=== PATIENT | male | born 1940 | race Caucasian/White ===

== ENCOUNTER 2020-08-31 03:01 | Emergency (ER) | payer MEDICARE, BC ==
[2020-08-31] MEDS ORDERED: Nitroglycerin 0.4 MG Tab.SL SL PRN (03:31)
[2020-08-31] MEDS ORDERED: Alum Hydroxide/Mag Hydroxide 15 ML, Lidocaine 2% 15 ML PO ONE ×2 (03:45)
[2020-08-31] MEDS ORDERED: Ondansetron 4 MG/2 ML SDV IVPUSH STA (04:23)
[2020-08-31] MEDS ORDERED: Sodium Chloride 0.9% 10 ML Syringe FLUSH PRN (04:30)
--- NOTE | 2020-08-31 04:45 | EDM.PDOC ---
ED HPI GENERAL MEDICAL PROBLEM - General Chief Complaint: Chest Pain Stated Complaint: CHEST PAIN Time Seen by Provider: 08/31/20 03:20 Source of Information: Reports: Patient, Family History Limitations: Reports: No Limitations - History of Present Illness INITIAL COMMENTS - FREE TEXT/NARRATIVE: Patient presented to the Ed with his friend because of chest pain and epigastric pain which started at 11 pm. He also c/o nausea but no vomiting. There is no fever,chills,cough/cold symptoms. mid chest/right upper chest Pain Score (Numeric/FACES): 8 - Related Data Allergies Allergy/AdvReac Type Severity Reaction Status Date / Time No Known Allergies Allergy Verified 08/31/20 03:19 Home Meds: Home Meds Carbidopa/Levodopa [Carbidopa-Levodopa 25-100] 1 tab PO TID 08/31/20 [History] Propranolol [Inderal] 20 mg PO BID 08/31/20 [History] Simvastatin 40 mg PO BEDTIME 08/31/20 [History] Past Medical History HEENT History: Reports: Impaired Vision Musculoskeletal History: Reports: Other (See Below) Other Musculoskeletal History: has parkinsons, has hand tremors. Neurological History: Reports: Parkinson's Social & Family History - Family History Family Medical History: No Pertinent Family History - Tobacco Use Tobacco Use Status *Q: Never Tobacco User Second Hand Smoke Exposure: No - Caffeine Use Caffeine Use: Reports: Coffee, Soda Other Caffeine Use: drinks soda and tea-seldom - Recreational Drug Use Recreational Drug Use: No ED ROS GENERAL - Review of Systems Review Of Systems: See Below Constitutional: Reports: No Symptoms HEENT: Reports: No Symptoms Respiratory: Reports: No Symptoms Cardiovascular: Reports: Chest Pain Endocrine: Reports: No Symptoms GI/Abdominal: Reports: Abdominal Pain, Nausea : Reports: No Symptoms Musculoskeletal: Reports: No Symptoms Skin: Reports: No Symptoms ED EXAM, GENERAL - Physical Exam Exam: See Below Exam Limited By: No Limitations General Appearance: Alert, No Apparent Distress Ears: Normal External Exam, Normal Canal Nose: Normal Inspection, Normal Mucosa, No Blood Throat/Mouth: Normal Inspection, Normal Lips, Normal Teeth Head: Atraumatic, Normocephalic Neck: Normal Inspection, Supple, Non-Tender, Full Range of Motion Respiratory/Chest: No Respiratory Distress, Lungs Clear, Normal Breath Sounds Cardiovascular: Normal Peripheral Pulses, Regular Rate, Rhythm, No Edema, No Gallop, No JVD, No Murmur, No Rub GI/Abdominal: Normal Bowel Sounds, Soft, Non-Tender, No Organomegaly Back Exam: Normal Inspection, Full Range of Motion Extremities: Normal Inspection, Normal Range of Motion, Non-Tender Neurological: Alert, Oriented, CN II-XII Intact Psychiatric: Normal Affect Course - Vital Signs Text/Narrative:: Labs/EKG/CXR was discussed with patient He took ASA 324 mg po x1 before the ED visit GI cocktail PO x1 NTG SL x1 Vistaril 25 mg IM x1 Last Recorded V/S: Last Vital Signs Temp 36.5 C 08/31/20 03:15 Pulse 51 L 08/31/20 03:15 Resp 21 H 08/31/20 03:15 BP 172/88 H 08/31/20 03:33 Pulse Ox 100 08/31/20 03:15 - Orders/Labs/Meds Orders: Active Orders 24 hr Category Date Time Status EKG Documentation Completion [RC] ASDIRECTED Care 08/31/20 03:31 Active Chest 1V Frontal [CR] Stat Exams 08/31/20 03:31 Taken Nitroglycerin [Nitrostat] Med 08/31/20 03:31 Active 0.4 mg SL Q5M PRN Sodium Chloride 0.9% [Saline Flush] Med 08/31/20 04:30 Active 10 ml FLUSH ASDIRECTED PRN EKG 12 Lead [EK] Routine Ther 08/31/20 03:31 Ordered Medication Orders Nitroglycerin (Nitrostat) 0.4 mg SL Q5M PRN PRN Reason: Chest Pain Last Admin: 08/31/20 03:33 Dose: 0.4 mg Documented by: JOHNY Sodium Chloride (Saline Flush) 10 ml FLUSH ASDIRECTED PRN PRN Reason: Keep Vein Open Last Admin: 08/31/20 04:31 Dose: 10 ml Documented by: JOHNY Labs: Laboratory Tests 08/31/20 08/31/20 08/31/20 Range/Units 03:25 03:25 03:25 WBC 8.9 (3.2-10.1) x10-3/uL RBC 4.68 (3.90-5.90) x10(6)uL Hgb 14.5 (12.9-17.7) g/dL Hct 43.2 (38.3-50.1) % MCV 92.2 (80.8-98.7) fL MCH 31.0 (27.0-33.3) pg MCHC 33.6 (28.7-35.3) g/dL RDW 12.7 (12.4-15.0) % Plt Count 271 (117-477) x10(3)uL MPV 8.3 (6.7-11.0) fL Neut % (Auto) 63.9 (40.3-71.8) % Lymph % (Auto) 24.4 (15.8-45.3) % Blount % (Auto) 8.2 (5.5-15.2) % Eos % (Auto) 2.8 (0.1-6.8) % Baso % (Auto) 0.7 (0.3-3.8) % Neut # (Auto) 5.7 (1.7-6.9) x10-3/uL Lymph # (Auto) 2.2 (0.5-4.5) x10-3/uL Blount # (Auto) 0.7 (0.0-1.2) x10-3/uL Eos # (Auto) 0.2 (0.0-0.6) x10-3/uL Baso # (Auto) 0.1 (0.0-0.3) x10-3/uL PT 10.2 (9.0-11.1) sec INR 0.94 L (1.00-1.24) APTT 27.7 (24.4-33.2) SECONDS Sodium 134 L (135-145) mmol/L Potassium 4.6 (3.5-5.3) mmol/L Chloride 100 (100-110) mmol/L Carbon Dioxide 25 (21-32) mmol/L BUN 18 (7-18) mg/dL Creatinine 1.0 (0.70-1.30) mg/dL Est Cr Clr Drug Dosing 48.21 mL/min Estimated GFR (MDRD) > 60 (>60) BUN/Creatinine Ratio 18.0 (9-20) Glucose 122 H (80-116) mg/dL Calcium 9.3 (8.6-10.2) mg/dL Total Bilirubin 0.6 (0.1-1.3) mg/dL AST 22 (5-25) IU/L ALT 19 (12-36) U/L Alkaline Phosphatase 60 (56-112) IU/L Troponin I (4.0-60.3) pg/mL Total Protein 7.1 (6.0-8.0) g/dL Albumin 3.9 (3.2-4.6) g/dL Globulin 3.2 g/dL Albumin/Globulin Ratio 1.2 08/31/20 Range/Units 03:25 WBC (3.2-10.1) x10-3/uL RBC (3.90-5.90) x10(6)uL Hgb (12.9-17.7) g/dL Hct (38.3-50.1) % MCV (80.8-98.7) fL MCH (27.0-33.3) pg MCHC (28.7-35.3) g/dL RDW (12.4-15.0) % Plt Count (117-477) x10(3)uL MPV (6.7-11.0) fL Neut % (Auto) (40.3-71.8) % Lymph % (Auto) (15.8-45.3) % Blount % (Auto) (5.5-15.2) % Eos % (Auto) (0.1-6.8) % Baso % (Auto) (0.3-3.8) % Neut # (Auto) (1.7-6.9) x10-3/uL Lymph # (Auto) (0.5-4.5) x10-3/uL Blount # (Auto) (0.0-1.2) x10-3/uL Eos # (Auto) (0.0-0.6) x10-3/uL Baso # (Auto) (0.0-0.3) x10-3/uL PT (9.0-11.1) sec INR (1.00-1.24) APTT (24.4-33.2) SECONDS Sodium (135-145) mmol/L Potassium (3.5-5.3) mmol/L Chloride (100-110) mmol/L Carbon Dioxide (21-32) mmol/L BUN (7-18) mg/dL Creatinine (0.70-1.30) mg/dL Est Cr Clr Drug Dosing mL/min Estimated GFR (MDRD) (>60) BUN/Creatinine Ratio (9-20) Glucose (80-116) mg/dL Calcium (8.6-10.2) mg/dL Total Bilirubin (0.1-1.3) mg/dL AST (5-25) IU/L ALT (12-36) U/L Alkaline Phosphatase (56-112) IU/L Troponin I 22.9 (4.0-60.3) pg/mL Total Protein (6.0-8.0) g/dL Albumin (3.2-4.6) g/dL Globulin g/dL Albumin/Globulin Ratio Meds: Medications Generic Name Dose Route Start Last Admin Trade Name Freq PRN Reason Stop Dose Admin Nitroglycerin 0.4 mg 08/31/20 03:31 08/31/20 03:33 Nitrostat SL 0.4 mg Q5M PRN Administration Chest Pain Sodium Chloride 10 ml 08/31/20 04:30 08/31/20 04:31 Saline Flush FLUSH 10 ml ASDIRECTED PRN Administration Keep Vein Open Discontinued Medications Generic Name Dose Route Start Last Admin Trade Name Freq PRN Reason Stop Dose Admin Al Hydroxide/Mg Hydroxide 15 0 ml 08/31/20 03:45 08/31/20 03:50 ml/ Lidocaine HCl 15 ml PO 08/31/20 03:46 30 ml ONETIME ONE Administration Hydroxyzine HCl 25 mg 08/31/20 04:57 08/31/20 05:04 Vistaril IM 08/31/20 04:58 25 mg NOW STA Administration Ondansetron HCl 4 mg 08/31/20 04:23 08/31/20 04:30 Zofran IVPUSH 08/31/20 04:24 4 mg NOW STA Administration Departure - Departure Time of Disposition: 06:00 Disposition: Home, Self-Care 01 Condition: Good Clinical Impression: GERD (gastroesophageal reflux disease), Atypical chest pain - Discharge Information Instructions: Food Choices for Gastroesophageal Reflux Disease, Adult, Nonspecific Chest Pain, Adult, [id number] Referrals: Matteo De Los Santos MD [Primary Care Provider] - Forms: ED Department Discharge Additional Instructions: Please read discharge instructions on GERD and atypical chest pain Read food and beverages that can aggravate acid reflux/GERD If it's becoming more frequent ask your doctor for omeprazole 20 mg daily Sepsis Event Note (ED) - Evaluation Sepsis Screening Result: No Definite Risk - Focused Exam Vital Signs: Vital Signs Temp Pulse Resp BP BP Pulse Ox 08/31/20 03:33 172/88 H 08/31/20 03:15 36.5 C 51 L 21 H 148/81 H 100 - My Orders Last 24 Hours: My Active Orders 08/31/20 03:31 EKG Documentation Completion [RC] ASDIRECTED Chest 1V Frontal [CR] Stat Nitroglycerin [Nitrostat] 0.4 mg SL Q5M PRN EKG 12 Lead [EK] Routine 08/31/20 04:30 Sodium Chloride 0.9% [Saline Flush] 10 ml FLUSH ASDIRECTED PRN - Assessment/Plan Last 24 Hours: My Active Orders 08/31/20 03:31 EKG Documentation Completion [RC] ASDIRECTED Chest 1V Frontal [CR] Stat Nitroglycerin [Nitrostat] 0.4 mg SL Q5M PRN EKG 12 Lead [EK] Routine 08/31/20 04:30 Sodium Chloride 0.9% [Saline Flush] 10 ml FLUSH ASDIRECTED PRN
[2020-08-31] MEDS ORDERED: hydrOXYzine HCl 50 MG/ML SDV IM STA (04:57)
[2020-08-31] MEDS ORDERED: Simethicone 80 MG Tab.Chew PO STA (05:52)
--- NOTE | 2020-08-31 11:10 | CR ---
INDICATION: Chest pain. CHEST ONE VIEW: An AP upright view of the chest was obtained 08/31/20 - no comparisons. The heart is normal in size and shape. The aorta is tortuous with calcification in the arch and descending portion. Overlying EKG leads are noted. A definite active infiltrate or effusion was not identified, although markings at the left costophrenic angle area are somewhat indistinct and could represent a very minimal area of pneumonia or fibrosis. Colonic interposition is noted on the right. IMPRESSION: 1. No definite acute process, but minimal pneumonia at the left costophrenic angle difficult to exclude. 2. ASD aorta. MTDD
== END 2020-08-31 06:23 | disposition home or self-care (01) ==
LOC: FB.ED 03:01
DX: K21.9 Gastro-esophageal reflux disease without esophagitis (principal); G20 Parkinson's disease; Z79.899 Other long term (current) drug therapy
CPT/HCPCS: 36415; 71045; 80053; 84484; 85025; 85610; 85730; 93005; 96372; 96374; 99284; 99285-25; A9270-GY; J2405; J3410

== ENCOUNTER 2020-10-05 06:26 | Inpatient (IN) | payer MEDICARE, BC ==
[2020-10-05] MEDS: Lactated Ringers 1,000 ML IV SCH ×3 (07:15→16:30)
--- NOTE | 2020-10-05 08:20 | PCM.HPR ---
H & P Addendum review - H & P Addendum Review Date of Original H & P: 09/28/20 Date Reviewed: 10/05/20 Time Reviewed: 07:55 Patient was Examined: No Changes
[2020-10-05] MEDS ORDERED: Piperacillin/Tazobactam 3.375 GM in Sodium Chloride 0.9% 50 ML IV SCH (09:00)
[2020-10-05] MEDS ORDERED: Sodium Chloride 0.9% 250 ML IV SCH (10:00)
[2020-10-05] MEDS ORDERED: HYDROmorphone 2 MG/ML SDV IVPUSH PRN (11:22)
--- NOTE | 2020-10-05 11:22 | PCM.OPNOTE ---
- General Post-Op/Procedure Note Date of Surgery/Procedure: 10/05/20 Operative Procedure(s): Lap Nyla Findings: Acute Gangrenous Cholecystitis with Adhesions Pre Op Diagnosis: Cholecystitis Post-Op Diagnosis: Same Anesthesia Technique: General ET Tube Primary Surgeon: Kannan Sherman Anesthesia Provider: Singh Atwood Pathology: GB, culture EBL in mLs: 850 Surgical Drain/Tube Type: Jr Egan Drain Complications: None Condition: Good
[2020-10-05] MEDS ORDERED: Lactated Ringers 1,000 ML IV SCH (11:30)
[2020-10-05] MEDS: Pantoprazole 40 MG Vial IVPUSH SCH (12:27)
[2020-10-05] MEDS ORDERED: Lactated Ringers 1,000 ML IV ONE (12:49)
[2020-10-05] MEDS ORDERED: Glycopyrrolate 0.2 MG/ML 5 ML MDV IV ONE (12:49)
[2020-10-05] MEDS ORDERED: Sodium Chloride 0.9% 500 ML IV ONE (12:49)
[2020-10-05] MEDS ORDERED: Hetastarch in NS 500 ML IV ONE (12:49)
[2020-10-05] MEDS ORDERED: Ketorolac 30 MG/ML SDV IVPUSH ONE (12:49)
[2020-10-05] MEDS ORDERED: Midazolam 1 MG/ML 2 ML SDV IV ONE (12:49)
[2020-10-05] MEDS ORDERED: Sodium Chloride 0.9% 1,000 ML IV ONE (12:49)
[2020-10-05] MEDS ORDERED: Ondansetron 4 MG/2 ML SDV IVPUSH ONE (12:49)
[2020-10-05] MEDS ORDERED: Propofol 200 MG/20 ML SDV IV ONE (12:49)
[2020-10-05] MEDS ORDERED: Rocuronium 100 MG/10 ML MDV IV ONE (12:49)
[2020-10-05] MEDS ORDERED: HYDROmorphone 2 MG/ML SDV IV ONE (12:49)
[2020-10-05] MEDS ORDERED: fentaNYL 100 MCG/2 ML SDV IV ONE (12:49)
[2020-10-05] MEDS: Sodium Chloride 0.9% 10 ML Syringe FLUSH PRN ×2 (12:50→16:30)
[2020-10-05] MEDS ORDERED: HYDROmorphone 2 MG/ML SDV IVPUSH ONE (13:29)
[2020-10-05] MEDS: Piperacillin/Tazobactam 3.375 GM in Sodium Chloride 0.9% 50 ML IV SCH ×2 (16:20→20:57)
[2020-10-05] MEDS: HYDROmorphone 2 MG/ML SDV IVPUSH PRN (18:04)
[2020-10-05] MEDS: Carbidopa/Levodopa 25-100 MG Tab PO SCH (20:57)
[2020-10-06] MEDS: HYDROmorphone 2 MG/ML SDV IVPUSH PRN ×4 (00:22→21:02)
[2020-10-06] MEDS ORDERED: Lactated Ringers 1,000 ML IV SCH (02:15)
[2020-10-06] MEDS: Piperacillin/Tazobactam 3.375 GM in Sodium Chloride 0.9% 50 ML IV SCH ×4 (03:30→21:00)
[2020-10-06] MEDS: Sodium Chloride 0.9% 10 ML Syringe FLUSH PRN ×2 (04:00→04:05)
[2020-10-06] MEDS: Lactated Ringers 1,000 ML IV SCH ×2 (05:18→14:55)
--- NOTE | 2020-10-06 07:36 | PCM.SURGPN ---
- General Info Date of Service: 10/06/20 POD#: 1 Functional Status: Reports: Pain Controlled - Review of Systems General: Reports: No Symptoms Pulmonary: Reports: No Symptoms Cardiovascular: Reports: No Symptoms Gastrointestinal: Reports: No Symptoms - Patient Data Vitals - Most Recent: Last Vital Signs Temp 96.4 F L 10/05/20 18:30 Pulse 92 10/05/20 18:30 Resp 18 10/05/20 18:30 BP 136/90 10/05/20 18:30 Pulse Ox 96 10/05/20 18:30 Weight - Most Recent: 70.052 kg I&O - Last 24 Hours: Intake & Output 10/05/20 10/06/20 10/06/20 22:59 06:59 14:59 Intake Total 1100 1550 Output Total 660 380 Balance 440 1170 Lab Results Last 24 Hrs: Laboratory Results - last 24 hr 10/05/20 10/05/20 10/05/20 Range/Units 06:50 07:14 10:20 WBC (3.2-10.1) x10-3/uL RBC (3.90-5.90) x10(6)uL Hgb 10.9 L D (12.9-17.7) g/dL Hct 31.7 L D (38.3-50.1) % MCV (80.8-98.7) fL MCH (27.0-33.3) pg MCHC (28.7-35.3) g/dL RDW (12.4-15.0) % Plt Count (117-477) x10(3)uL MPV (6.7-11.0) fL Add Manual Diff Sodium (135-145) mmol/L Potassium (3.5-5.3) mmol/L Chloride (100-110) mmol/L Carbon Dioxide (21-32) mmol/L BUN (7-18) mg/dL Creatinine (0.70-1.30) mg/dL Est Cr Clr Drug Dosing mL/min Estimated GFR (MDRD) (>60) BUN/Creatinine Ratio (9-20) Glucose (80-116) mg/dL Calcium (8.6-10.2) mg/dL Total Bilirubin (0.1-1.3) mg/dL AST (5-25) IU/L ALT (12-36) U/L Alkaline Phosphatase (56-112) IU/L Total Protein (6.0-8.0) g/dL Albumin (3.2-4.6) g/dL Globulin g/dL Albumin/Globulin Ratio SARS-CoV-2 RNA (NAHOMI) Negative (NEGATIVE) Blood Type A NEGATIVE Gel Antibody Screen Negative Crossmatch See Detail 10/06/20 10/06/20 Range/Units 06:25 06:25 WBC 16.0 H (3.2-10.1) x10-3/uL RBC 4.12 (3.90-5.90) x10(6)uL Hgb 12.6 L (12.9-17.7) g/dL Hct 37.4 L (38.3-50.1) % MCV 90.7 (80.8-98.7) fL MCH 30.6 (27.0-33.3) pg MCHC 33.8 (28.7-35.3) g/dL RDW 14.3 (12.4-15.0) % Plt Count 225 (117-477) x10(3)uL MPV 7.7 (6.7-11.0) fL Add Manual Diff Yes Sodium 138 (135-145) mmol/L Potassium 3.9 (3.5-5.3) mmol/L Chloride 101 (100-110) mmol/L Carbon Dioxide 28 (21-32) mmol/L BUN 17 (7-18) mg/dL Creatinine 0.9 (0.70-1.30) mg/dL Est Cr Clr Drug Dosing 53.75 mL/min Estimated GFR (MDRD) > 60 (>60) BUN/Creatinine Ratio 18.9 (9-20) Glucose 119 H (80-116) mg/dL Calcium 7.8 L (8.6-10.2) mg/dL Total Bilirubin 1.3 (0.1-1.3) mg/dL AST 51 H D (5-25) IU/L ALT 35 D (12-36) U/L Alkaline Phosphatase 49 L (56-112) IU/L Total Protein 4.9 L (6.0-8.0) g/dL Albumin 2.2 L (3.2-4.6) g/dL Globulin 2.7 g/dL Albumin/Globulin Ratio 0.8 SARS-CoV-2 RNA (NAHOMI) (NEGATIVE) Blood Type Gel Antibody Screen Crossmatch Azael Results Last 24 Hrs: Microbiology 10/05/20 10:04 Gram Stain - Final Gallbladder Med Orders - Current: Current Medications Hydrocodone Bitart/Acetaminophen (Acetaminophen/Hydrocodone 325-5 Mg Tab) 1 tab PO Q4H PRN PRN Reason: Pain (mild 1-3) Carbidopa/Levodopa (Carbidopa/Levodopa 25-100 Mg Tab) 2 tab PO TID [facility] Last Admin: 10/05/20 20:57 Dose: 2 tab Documented by: Hydromorphone HCl (Hydromorphone 2 Mg/Ml Sdv) 1 mg IVPUSH Q1H PRN PRN Reason: Pain Last Admin: 10/06/20 04:00 Dose: 1 mg Documented by: Lactated Ringer's (Ringers, Lactated) 1,000 mls @ 100 mls/hr IV ASDIRECTED [facility] Last Admin: 10/06/20 05:18 Dose: 125 mls/hr Documented by: Sodium Chloride (Normal Saline) 250 mls @ 100 mls/hr IV ASDIRECTED [facility] Last Admin: 10/05/20 14:13 Dose: 100 mls/hr Documented by: Piperacillin Sod/Tazobactam (Sod 3.375 gm/ Sodium Chloride) 50 mls @ 100 mls/hr IV Q6H [facility] Last Admin: 10/06/20 03:30 Dose: 100 mls/hr Documented by: Pantoprazole Sodium (Pantoprazole 40 Mg Vial) 40 mg IVPUSH DAILY [facility] Last Admin: 10/05/20 12:27 Dose: 40 mg Documented by: Sodium Chloride (Sodium Chloride 0.9% 10 Ml Syringe) 10 ml FLUSH ASDIRECTED PRN PRN Reason: Keep Vein Open Last Admin: 10/06/20 04:05 Dose: 10 ml Documented by: Discontinued Medications Hydromorphone HCl (Hydromorphone 2 Mg/Ml Sdv) 0.5 mg IVPUSH Q2H PRN PRN Reason: Pain (moderate 4-6) Hydromorphone HCl (Hydromorphone 2 Mg/Ml Sdv) 2 mg IVPUSH ONETIME ONE Stop: 10/05/20 13:30 Last Admin: 10/05/20 13:55 Dose: 2 mg Documented by: Piperacillin Sod/Tazobactam (Sod 3.375 gm/ Sodium Chloride) 50 mls @ 100 mls/hr IV Q6H [id number] Last Admin: 10/05/20 08:55 Dose: 100 mls/hr Documented by: Lactated Ringer's (Ringers, Lactated) 1,000 mls @ 333 mls/hr IV ASDIRECTED [facility] Stop: 10/06/20 05:16 Last Admin: 10/06/20 02:21 Dose: 333 mls/hr Documented by: - Exam Wound/Incisions: Dressing Dry and Intact General: Cooperative, No Acute Distress Lungs: Clear to Auscultation GI/Abdominal Exam: Soft, Distended (mild) Skin: Warm, Dry Sepsis Event Note - Evaluation Sepsis Screening Result: No Definite Risk - Problem List Review Problem List Initiated/Reviewed/Updated: Yes - My Orders Last 24 Hours: Active Orders 24 hr Category Date Time Status Patient Status [ADT] Routine ADT 10/05/20 11:23 Active Norris Catheter Insertion [Insert Urinary Catheter] [OM. Care 10/05/20 15:00 Ordered PC] Q24H Intake and Output [RC] 06,14,22 Care 10/05/20 14:55 Active Oxygen Therapy [RC] PRN Care 10/05/20 11:23 Active RT Incentive Spirometry [RC] Q2HWA Care 10/05/20 11:22 Active Up With Assistance [RC] ASDIRECTED Care 10/05/20 11:22 Active Urinary Catheter Assessment [RC] QSHIFT Care 10/05/20 14:54 Active Vital Signs [RC] PER UNIT ROUTINE Care 10/05/20 11:23 Active Nothing Per Oral Diet [DIET] Diet 10/05/20 Dinner Ordered CBC W/O DIFF,HEMOGRAM [HEME] Routine Lab 10/07/20 07:30 Ordered CBC WITH AUTO DIFF [HEME] AM Lab 10/06/20 06:25 Results CULTURE ANAEROBIC [RM] Routine Lab 10/05/20 10:04 Results CULTURE ROUTINE + SMEAR [RM] Routine Lab 10/05/20 10:04 Results PATIENT RETYPE [BBK] Routine Lab 10/05/20 07:14 Results RED BLOOD CELLS LP [BBK] Routine Lab 10/05/20 07:14 Results TYPE AND SCREEN [BBK] Routine Lab 10/05/20 07:14 Results Acetaminophen/HYDROcodone [[place] 325-5 MG] Med 10/05/20 11:22 Active 1 tab PO Q4H PRN Carbidopa/Levodopa [Sinemet 25-100 mg] Med 10/05/20 21:00 Active 2 tab PO TID HYDROmorphone [Dilaudid] Med 10/05/20 17:30 Active 1 mg IVPUSH Q1H PRN Pantoprazole [ProTONIX IV] Med 10/05/20 11:30 Active 40 mg IVPUSH DAILY Piperacillin/Tazobactam [Zosyn] 3.375 gm Med 10/05/20 15:00 Active Sodium Chloride 0.9% [Normal Saline] 50 ml IV Q6H Sodium Chloride 0.9% [Normal Saline] 250 ml Med 10/05/20 10:00 Active IV ASDIRECTED Transfuse Red Blood Cells [COMM] Urgent Oth 10/05/20 09:58 Ordered Medication Orders Hydrocodone Bitart/Acetaminophen (Acetaminophen/Hydrocodone 325-5 Mg Tab) 1 tab PO Q4H PRN PRN Reason: Pain (mild 1-3) Carbidopa/Levodopa (Carbidopa/Levodopa 25-100 Mg Tab) 2 tab PO TID [facility] Last Admin: 10/05/20 20:57 Dose: 2 tab Documented by: JOHANNA Hydromorphone HCl (Hydromorphone 2 Mg/Ml Sdv) 1 mg IVPUSH Q1H PRN PRN Reason: Pain Last Admin: 10/06/20 04:00 Dose: 1 mg Documented by: Admin: 10/06/20 00:22 Dose: 1 mg Documented by: Admin: 10/05/20 18:04 Dose: 1 mg Documented by: ILIANA Lactated Ringer's (Ringers, Lactated) 1,000 mls @ 100 mls/hr IV ASDIRECTED [facility] Last Admin: 10/06/20 05:18 Dose: 125 mls/hr Documented by: Infusion: 10/06/20 00:30 Dose: 125 mls/hr Documented by: Admin: 10/05/20 16:30 Dose: 125 mls/hr Documented by: Infusion: 10/05/20 16:30 Dose: 125 mls/hr Documented by: Admin: 10/05/20 12:30 Dose: 125 mls/hr Documented by: Infusion: 10/05/20 12:30 Dose: 125 mls/hr Documented by: Admin: 10/05/20 07:15 Dose: 125 mls/hr Documented by: CHAPIN Sodium Chloride (Normal Saline) 250 mls @ 100 mls/hr IV ASDIRECTED [facility] Last Admin: 10/05/20 14:13 Dose: 100 mls/hr Documented by: ILIANA Piperacillin Sod/Tazobactam (Sod 3.375 gm/ Sodium Chloride) 50 mls @ 100 mls/hr IV Q6H [facility] Last Admin: 10/06/20 03:30 Dose: 100 mls/hr Documented by: Admin: 10/05/20 20:57 Dose: 100 mls/hr Documented by: Admin: 10/05/20 16:20 Dose: 100 mls/hr Documented by: ILIANA Pantoprazole Sodium (Pantoprazole 40 Mg Vial) 40 mg IVPUSH DAILY [facility] Last Admin: 10/05/20 12:27 Dose: 40 mg Documented by: CHAPIN Sodium Chloride (Sodium Chloride 0.9% 10 Ml Syringe) 10 ml FLUSH ASDIRECTED PRN PRN Reason: Keep Vein Open Last Admin: 10/06/20 04:05 Dose: 10 ml Documented by: Admin: 10/06/20 04:00 Dose: 10 ml Documented by: Admin: 10/05/20 16:30 Dose: 10 ml Documented by: Admin: 10/05/20 12:50 Dose: 10 ml Documented by: ILIANA - Assessment Assessment (Free Text/Narrative):: Doing Well POD #1 NEHAL Drainage possibly bilious - Plan Plan (Free Text/Narrative):: Cont as is, Cont IV Zosyn Await Cultures
[2020-10-06] MEDS: Pantoprazole 40 MG Vial IVPUSH SCH (09:17)
[2020-10-06] MEDS: Carbidopa/Levodopa 25-100 MG Tab PO SCH ×3 (09:17→20:14)
--- NOTE | 2020-10-06 09:22 | OR ---
DATE OF OPERATION: 10/05/2020 SURGEON: Kannan Sherman MD PREOPERATIVE DIAGNOSES: Chronic cholecystitis and cholelithiasis. 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 PROCEDURE: Attempted laparoscopic converted to open cholecystectomy with adhesiolysis. ANESTHESIA: General. DESCRIPTION OF PROCEDURE: The patient was brought to the operating room, where general endotracheal anesthesia was administered. The abdomen was prepped with ChloraPrep and draped sterilely. An infraumbilical incision was made and extended into the peritoneal cavity without difficulty. The Sasha cannulator was introduced and pneumoperitoneum obtained. 5 mm ports were placed in the epigastric and 2 in the right side. Colon and omentum were covering the liver and right upper quadrant, and the colon was brought back down after the patient was placed in reverse Trendelenburg position and rotated to the left. Unfortunately, omentum was severely adhesed to the undersurface of the liver. I was able to gently peel this with blunt dissection and electrocautery to expose the gallbladder. Antrum of the stomach was also adhesed to the area that was carefully taken down to expose the neck of the gallbladder. In attempting to grasp the gallbladder, was necrotic and part of the anterior wall came off and some thick bile and stones were present. I was able to work around the base of the neck and get this mostly freed up, but could not separate and identify the cystic duct and cystic artery. Therefore, I started working from the right side and worked from the fundus toward the neck to mobilize the gallbladder. There was continual oozing throughout the whole case. At the midportion of the gallbladder where there was no plane between the liver and gallbladder, I encountered an aberrant branch of the cystic artery or blood other vessel in the surface of the liver that was arterial. I was able to place a grasper on this to seal it. At that point, I felt continuing to work laparoscopically was not feasible and left the ratcheted grasper on the blood vessel. The decision was made to convert to an open at that time. A right subcostal incision was made and extended through the rectus muscle and layered muscles laterally. The Tucker retractor system was set up and 2 packs placed on the upper portion of the liver to aid in visualization and exposure. The bowel and omentum were held down with moistened lap sponge and malleable retractors. I then carefully started taking down the gallbladder from the fundus and work down to where the vessel was that was still clamped. As I got closer, I encountered 2 more arterial branches that I was able to isolate and apply hemoclips too. There is much vascularization in this area, I was able to isolate the clamped vessel and place a [id number] 2-0 Vicryl suture around this and remove the clamp and tie the suture, which provided good hemostasis. I also did apply hemoclip here. This area was observed for several minutes and remained hemostatic. I was then able to continue removing the gallbladder down to its neck. The gallbladder was already open from the necrotic part and I sucked out the remaining small stone fragment to make sure no stones were present in the neck. I then placed a right angle clamp around the neck of the gallbladder and transected the gallbladder. The base of the neck and cystic duct was then tied with 2-0 Vicryl. I did also place an Endo clip on this. I did send out part of the gallbladder wall for culture. The area was thoroughly irrigated and inspected and remained hemostatic. The cystic artery was never clearly identified, but again branches of it were tied. The remaining liver appears normal. I did place a Gelfoam hemostatic pad in the bed of the liver. Packs and retractors were removed. Incision was closed in 2 layers with a running 0 Vicryl suture for the posterior rectus fascia and transversalis muscle and #1 PDS for the anterior rectus fascia and internal and external oblique muscle. Subcutaneous tissue was irrigated and skin closed with dorian. Umbilical fascia was closed with [id number] 0 Vicryl. Remaining incisions were closed with dorian. Prior to final closure, I did place a 1/4- inch round oval drain through one of the right-sided port incisions and placed this in the bed of the liver. This was secured to the skin with 2-0 Ethilon. Sterile dressings were applied. The patient tolerated the procedure well. Estimated blood loss 850 mL. He tolerated the procedure well and returned to recovery in stable condition. /[id number] [place] O[place]LL[place]
[2020-10-06] MEDS: Acetaminophen/HYDROcodone 325-5 MG Tab PO PRN (14:35)
[2020-10-06] MEDS ORDERED: HYDROmorphone 2 MG/ML SDV IVPUSH PRN (22:10)
[2020-10-07] MEDS: Lactated Ringers 1,000 ML IV SCH ×2 (02:15→16:08)
[2020-10-07] MEDS: Sodium Chloride 0.9% 10 ML Syringe FLUSH PRN ×5 (03:25→21:33)
[2020-10-07] MEDS: Piperacillin/Tazobactam 3.375 GM in Sodium Chloride 0.9% 50 ML IV SCH ×4 (03:25→20:54)
[2020-10-07] MEDS: Acetaminophen/HYDROcodone 325-5 MG Tab PO PRN ×2 (08:48→21:32)
[2020-10-07] MEDS: Carbidopa/Levodopa 25-100 MG Tab PO SCH ×3 (08:50→20:43)
[2020-10-07] MEDS: Pantoprazole 40 MG Vial IVPUSH SCH (08:51)
--- NOTE | 2020-10-07 17:32 | PCM.SURGPN ---
- General Info Date of Service: 10/07/20 POD#: 2 Functional Status: Reports: Pain Controlled, Tolerating Diet, Incentive Spirometry (up to 750) - Review of Systems General: Reports: No Symptoms Pulmonary: Reports: No Symptoms Gastrointestinal: Reports: Abdominal Pain (better today) - Patient Data Vitals - Most Recent: Last Vital Signs Temp 98.7 F 10/07/20 12:25 Pulse 80 10/07/20 12:25 Resp 20 10/07/20 12:25 BP 152/72 H 10/07/20 12:25 Pulse Ox 93 L 10/07/20 12:25 Weight - Most Recent: 70.052 kg I&O - Last 24 Hours: Intake & Output 10/07/20 10/07/20 10/07/20 06:59 14:59 22:59 Intake Total 635 300 770 Output Total 735 1030 Balance -100 -730 770 Lab Results Last 24 Hrs: Laboratory Results - last 24 hr 10/07/20 Range/Units 06:30 WBC 10.2 H (3.2-10.1) x10-3/uL RBC 3.87 L (3.90-5.90) x10(6)uL Hgb 12.0 L (12.9-17.7) g/dL Hct 35.0 L (38.3-50.1) % MCV 90.4 (80.8-98.7) fL MCH 31.1 (27.0-33.3) pg MCHC 34.4 (28.7-35.3) g/dL RDW 14.1 (12.4-15.0) % Plt Count 198 (117-477) x10(3)uL Azael Results Last 24 Hrs: Microbiology 10/05/20 10:04 Gram Stain - Final Gallbladder Routine Culture - Preliminary Med Orders - Current: Current Medications Hydrocodone Bitart/Acetaminophen (Acetaminophen/Hydrocodone 325-5 Mg Tab) 1 tab PO Q4H PRN PRN Reason: Pain (mild 1-3) Last Admin: 10/07/20 08:48 Dose: 1 tab Documented by: Carbidopa/Levodopa (Carbidopa/Levodopa 25-100 Mg Tab) 2 tab PO TID [facility] Last Admin: 10/07/20 15:11 Dose: 2 tab Documented by: Hydromorphone HCl (Hydromorphone 2 Mg/Ml Sdv) 0.5 mg IVPUSH Q2H PRN PRN Reason: Pain Last Admin: 10/07/20 05:59 Dose: 0.5 mg Documented by: Sodium Chloride (Normal Saline) 250 mls @ 100 mls/hr IV ASDIRECTED [facility] Last Admin: 10/05/20 14:13 Dose: 100 mls/hr Documented by: Piperacillin Sod/Tazobactam (Sod 3.375 gm/ Sodium Chloride) 50 mls @ 100 mls/hr IV Q6H [facility] Last Admin: 10/07/20 15:12 Dose: 100 mls/hr Documented by: Lactated Ringer's (Ringers, Lactated) 1,000 mls @ 50 mls/hr IV ASDIRECTED [facility] Last Admin: 10/07/20 16:08 Dose: 75 mls/hr Documented by: Pantoprazole Sodium (Pantoprazole 40 Mg Vial) 40 mg IVPUSH DAILY [facility] Last Admin: 10/07/20 08:51 Dose: 40 mg Documented by: Propranolol HCl (Propranolol 20 Mg Tab) 20 mg PO BID [facility] Sodium Chloride (Sodium Chloride 0.9% 10 Ml Syringe) 10 ml FLUSH ASDIRECTED PRN PRN Reason: Keep Vein Open Last Admin: 10/07/20 15:12 Dose: 10 ml Documented by: Discontinued Medications Hydromorphone HCl (Hydromorphone 2 Mg/Ml Sdv) 0.5 mg IVPUSH Q2H PRN PRN Reason: Pain (moderate 4-6) Hydromorphone HCl (Hydromorphone 2 Mg/Ml Sdv) 2 mg IVPUSH ONETIME ONE Stop: 10/05/20 13:30 Last Admin: 10/05/20 13:55 Dose: 2 mg Documented by: Hydromorphone HCl (Hydromorphone 2 Mg/Ml Sdv) 1 mg IVPUSH Q1H PRN PRN Reason: Pain Last Admin: 10/06/20 21:02 Dose: 1 mg Documented by: Lactated Ringer's (Ringers, Lactated) 1,000 mls @ 100 mls/hr IV ASDIRECTED [facility] Last Admin: 10/06/20 14:55 Dose: 125 mls/hr Documented by: Piperacillin Sod/Tazobactam (Sod 3.375 gm/ Sodium Chloride) 50 mls @ 100 mls/hr IV Q6H [facility] Last Admin: 10/05/20 08:55 Dose: 100 mls/hr Documented by: Lactated Ringer's (Ringers, Lactated) 1,000 mls @ 333 mls/hr IV ASDIRECTED [facility] Stop: 10/06/20 05:16 Last Admin: 10/06/20 02:21 Dose: 333 mls/hr Documented by: - Exam Wound/Incisions: Healing Well, Dressing Dry and Intact, Other (NEHAL serosanguanous decreasing) General: Alert, Oriented Lungs: Clear to Auscultation, Normal Respiratory Effort GI/Abdominal Exam: Soft, Non-Tender, Other Sepsis Event Note - Evaluation Sepsis Screening Result: No Definite Risk - Focused Exam Vital Signs: Vital Signs Temp Pulse Resp BP Pulse Ox 10/07/20 12:25 98.7 F 80 20 152/72 H 93 L 10/07/20 07:40 98.5 F 83 22 H 144/84 H 94 L - Problem List Review Problem List Initiated/Reviewed/Updated: Yes - My Orders Last 24 Hours: Active Orders 24 hr Category Date Time Status Clear Liquid Diet [DIET] Diet 10/07/20 Dinner Active Full Liquid Diet [DIET] Diet 10/08/20 Breakfast Ordered HYDROmorphone [Dilaudid] Med 10/06/20 22:10 Active 0.5 mg IVPUSH Q2H PRN Lactated Ringers [Ringers, Lactated] 1,000 ml Med 10/06/20 22:00 Active IV ASDIRECTED Propranolol [Inderal] Med 10/07/20 21:00 Ordered 20 mg PO BID Medication Orders Hydrocodone Bitart/Acetaminophen (Acetaminophen/Hydrocodone 325-5 Mg Tab) 1 tab PO Q4H PRN PRN Reason: Pain (mild 1-3) Last Admin: 10/07/20 08:48 Dose: 1 tab Documented by: Admin: 10/06/20 14:35 Dose: 1 tab Documented by: BRENNA Carbidopa/Levodopa (Carbidopa/Levodopa 25-100 Mg Tab) 2 tab PO TID [facility] Last Admin: 10/07/20 15:11 Dose: 2 tab Documented by: Admin: 10/07/20 08:50 Dose: 2 tab Documented by: Admin: 10/06/20 20:14 Dose: 2 tab Documented by: Admin: 10/06/20 14:35 Dose: 2 tab Documented by: Admin: 10/06/20 09:17 Dose: 2 tab Documented by: Admin: 10/05/20 20:57 Dose: 2 tab Documented by: JOHANNA Hydromorphone HCl (Hydromorphone 2 Mg/Ml Sdv) 0.5 mg IVPUSH Q2H PRN PRN Reason: Pain Last Admin: 10/07/20 05:59 Dose: 0.5 mg Documented by: JOHANNA Sodium Chloride (Normal Saline) 250 mls @ 100 mls/hr IV ASDIRECTED [facility] Last Admin: 10/05/20 14:13 Dose: 100 mls/hr Documented by: ILIANA Piperacillin Sod/Tazobactam (Sod 3.375 gm/ Sodium Chloride) 50 mls @ 100 mls/hr IV Q6H [facility] Last Admin: 10/07/20 15:12 Dose: 100 mls/hr Documented by: Admin: 10/07/20 08:59 Dose: 100 mls/hr Documented by: Admin: 10/07/20 03:25 Dose: 100 mls/hr Documented by: Admin: 10/06/20 21:00 Dose: 100 mls/hr Documented by: Admin: 10/06/20 15:01 Dose: 100 mls/hr Documented by: Admin: 10/06/20 08:57 Dose: 100 mls/hr Documented by: Admin: 10/06/20 03:30 Dose: 100 mls/hr Documented by: Admin: 10/05/20 20:57 Dose: 100 mls/hr Documented by: Admin: 10/05/20 16:20 Dose: 100 mls/hr Documented by: ILIANA Lactated Ringer's (Ringers, Lactated) 1,000 mls @ 50 mls/hr IV ASDIRECTED [facility] Last Admin: 10/07/20 16:08 Dose: 75 mls/hr Documented by: Infusion: 10/07/20 15:35 Dose: 75 mls/hr Documented by: Admin: 10/07/20 02:15 Dose: 75 mls/hr Documented by: JOHANNA Pantoprazole Sodium (Pantoprazole 40 Mg Vial) 40 mg IVPUSH DAILY [facility] [place] Last Admin: 10/07/20 08:51 Dose: 40 mg Documented by: Admin: 10/06/20 09:17 Dose: 40 mg Documented by: Admin: 10/05/20 12:27 Dose: 40 mg Documented by: CHAPIN Propranolol HCl (Propranolol 20 Mg Tab) 20 mg PO BID [facility] [place] Sodium Chloride (Sodium Chloride 0.9% 10 Ml Syringe) 10 ml FLUSH ASDIRECTED PRN PRN Reason: Keep Vein Open Last Admin: 10/07/20 15:12 Dose: 10 ml Documented by: Admin: 10/07/20 08:51 Dose: 10 ml Documented by: Admin: 10/07/20 03:54 Dose: 10 ml Documented by: Admin: 10/07/20 03:25 Dose: 10 ml Documented by: Admin: 10/06/20 04:05 Dose: 10 ml Documented by: Admin: 10/06/20 04:00 Dose: 10 ml Documented by: Admin: 10/05/20 16:30 Dose: 10 ml Documented by: Admin: 10/05/20 12:50 Dose: 10 ml Documented by: ILIANA - Assessment Assessment (Free Text/Narrative):: Doing well POD #2 Will advance to full liquids Decrease IV Will NOT use Lovenox with the bleeding at time of surgery
[2020-10-07] MEDS ORDERED: Propranolol 20 MG Tab PO SCH (21:00)
[2020-10-07] MEDS: Propranolol 10 MG Tab PO SCH (21:32)
[2020-10-08] MEDS: Piperacillin/Tazobactam 3.375 GM in Sodium Chloride 0.9% 50 ML IV SCH ×4 (03:15→20:29)
[2020-10-08] MEDS: Sodium Chloride 0.9% 10 ML Syringe FLUSH PRN ×3 (03:46→20:29)
--- NOTE | 2020-10-08 07:50 | PCM.SURGPN ---
- General Info Date of Service: 10/08/20 POD#: 3 Functional Status: Reports: Pain Controlled, Tolerating Diet, Ambulating - Review of Systems General: Reports: No Symptoms Gastrointestinal: Reports: No Symptoms Genitourinary: Reports: No Symptoms - Patient Data Vitals - Most Recent: Last Vital Signs Temp 97.3 F 10/08/20 03:29 Pulse 60 10/08/20 03:29 Resp 16 10/08/20 03:29 BP 155/83 H 10/08/20 03:29 Pulse Ox 94 L 10/08/20 03:29 Weight - Most Recent: 70.052 kg I&O - Last 24 Hours: Intake & Output 10/07/20 10/08/20 10/08/20 22:59 06:59 14:59 Intake Total 1391 527 Output Total 775 1070 Balance 616 -543 Med Orders - Current: Current Medications Hydrocodone Bitart/Acetaminophen (Acetaminophen/Hydrocodone 325-5 Mg Tab) 1 tab PO Q4H PRN PRN Reason: Pain (mild 1-3) Last Admin: 10/07/20 21:32 Dose: 1 tab Documented by: Carbidopa/Levodopa (Carbidopa/Levodopa 25-100 Mg Tab) 2 tab PO TID [facility] Last Admin: 10/07/20 20:43 Dose: 2 tab Documented by: Hydromorphone HCl (Hydromorphone 2 Mg/Ml Sdv) 0.5 mg IVPUSH Q2H PRN PRN Reason: Pain Last Admin: 10/07/20 05:59 Dose: 0.5 mg Documented by: Sodium Chloride (Normal Saline) 250 mls @ 100 mls/hr IV ASDIRECTED [facility] Last Admin: 10/05/20 14:13 Dose: 100 mls/hr Documented by: Piperacillin Sod/Tazobactam (Sod 3.375 gm/ Sodium Chloride) 50 mls @ 100 mls/hr IV Q6H [facility] Last Admin: 10/08/20 03:15 Dose: 100 mls/hr Documented by: Lactated Ringer's (Ringers, Lactated) 1,000 mls @ 50 mls/hr IV ASDIRECTED [facility] Last Admin: 10/07/20 16:08 Dose: 75 mls/hr Documented by: Pantoprazole Sodium (Pantoprazole 40 Mg Vial) 40 mg IVPUSH DAILY [facility] Last Admin: 10/07/20 08:51 Dose: 40 mg Documented by: Propranolol HCl (Propranolol 10 Mg Tab) 20 mg PO BID [facility] Last Admin: 10/07/20 21:32 Dose: 20 mg Documented by: Sodium Chloride (Sodium Chloride 0.9% 10 Ml Syringe) 10 ml FLUSH ASDIRECTED PRN PRN Reason: Keep Vein Open Last Admin: 10/08/20 03:46 Dose: 10 ml Documented by: Discontinued Medications Hydromorphone HCl (Hydromorphone 2 Mg/Ml Sdv) 0.5 mg IVPUSH Q2H PRN PRN Reason: Pain (moderate 4-6) Hydromorphone HCl (Hydromorphone 2 Mg/Ml Sdv) 2 mg IVPUSH ONETIME ONE Stop: 10/05/20 13:30 Last Admin: 10/05/20 13:55 Dose: 2 mg Documented by: Hydromorphone HCl (Hydromorphone 2 Mg/Ml Sdv) 1 mg IVPUSH Q1H PRN PRN Reason: Pain Last Admin: 10/06/20 21:02 Dose: 1 mg Documented by: Lactated Ringer's (Ringers, Lactated) 1,000 mls @ 100 mls/hr IV ASDIRECTED [facility] Last Admin: 10/06/20 14:55 Dose: 125 mls/hr Documented by: Piperacillin Sod/Tazobactam (Sod 3.375 gm/ Sodium Chloride) 50 mls @ 100 mls/hr IV Q6H [facility] Last Admin: 10/05/20 08:55 Dose: 100 mls/hr Documented by: Lactated Ringer's (Ringers, Lactated) 1,000 mls @ 333 mls/hr IV ASDIRECTED [facility] Stop: 10/06/20 05:16 Last Admin: 10/06/20 02:21 Dose: 333 mls/hr Documented by: Propranolol HCl (Propranolol 20 Mg Tab) 20 mg PO BID [facility] Last Admin: 10/07/20 21:54 Dose: Not Given Documented by: - Exam Wound/Incisions: Healing Well, Dressing Dry and Intact General: Alert, Cooperative, No Acute Distress Lungs: Clear to Auscultation GI/Abdominal Exam: Soft, Non-Tender Sepsis Event Note - Evaluation Sepsis Screening Result: No Definite Risk - Focused Exam Vital Signs: Vital Signs Temp Pulse Pulse Resp BP BP Pulse Ox 10/08/20 03:29 97.3 F 60 16 155/83 H 94 L 10/08/20 00:00 10/07/20 23:00 97.7 F 71 18 153/88 H 96 10/07/20 21:32 70 149/86 H 10/07/20 20:00 97.6 F 70 18 149/86 H 97 Pulse Ox 10/08/20 03:29 10/08/20 00:00 96 10/07/20 23:00 10/07/20 21:32 10/07/20 20:00 - Problem List Review Problem List Initiated/Reviewed/Updated: Yes - My Orders Last 24 Hours: Active Orders 24 hr Category Date Time Status DC Norris Catheter [Urinary Catheter Removal] [RC] PER Care 10/08/20 07:46 Ordered UNIT ROUTINE Clear Liquid Diet [DIET] Diet 10/07/20 Dinner Active Full Liquid Diet [DIET] Diet 10/08/20 Breakfast Active Soft Diet [DIET] Diet 10/08/20 Lunch Ordered Propranolol [Inderal] Med 10/07/20 21:30 Active 20 mg PO BID Medication Orders Hydrocodone Bitart/Acetaminophen (Acetaminophen/Hydrocodone 325-5 Mg Tab) 1 tab PO Q4H PRN PRN Reason: Pain (mild 1-3) Last Admin: 10/07/20 21:32 Dose: 1 tab Documented by: Admin: 10/07/20 08:48 Dose: 1 tab Documented by: Admin: 10/06/20 14:35 Dose: 1 tab Documented by: BRENNA Carbidopa/Levodopa (Carbidopa/Levodopa 25-100 Mg Tab) 2 tab PO TID [facility] Last Admin: 10/07/20 20:43 Dose: 2 tab Documented by: Admin: 10/07/20 15:11 Dose: 2 tab Documented by: Admin: 10/07/20 08:50 Dose: 2 tab Documented by: Admin: 10/06/20 20:14 Dose: 2 tab Documented by: Admin: 10/06/20 14:35 Dose: 2 tab Documented by: Admin: 10/06/20 09:17 Dose: 2 tab Documented by: Admin: 10/05/20 20:57 Dose: 2 tab Documented by: JOHANNA Hydromorphone HCl (Hydromorphone 2 Mg/Ml Sdv) 0.5 mg IVPUSH Q2H PRN PRN Reason: Pain Last Admin: 10/07/20 05:59 Dose: 0.5 mg Documented by: JOHANNA Sodium Chloride (Normal Saline) 250 mls @ 100 mls/hr IV ASDIRECTED [facility] Last Admin: 10/05/20 14:13 Dose: 100 mls/hr Documented by: ILIANA Piperacillin Sod/Tazobactam (Sod 3.375 gm/ Sodium Chloride) 50 mls @ 100 mls/hr IV Q6H [facility] Last Admin: 10/08/20 03:15 Dose: 100 mls/hr Documented by: Admin: 10/07/20 20:54 Dose: 100 mls/hr Documented by: Admin: 10/07/20 15:12 Dose: 100 mls/hr Documented by: Admin: 10/07/20 08:59 Dose: 100 mls/hr Documented by: Admin: 10/07/20 03:25 Dose: 100 mls/hr Documented by: Admin: 10/06/20 21:00 Dose: 100 mls/hr Documented by: Admin: 10/06/20 15:01 Dose: 100 mls/hr Documented by: Admin: 10/06/20 08:57 Dose: 100 mls/hr Documented by: Admin: 10/06/20 03:30 Dose: 100 mls/hr Documented by: Admin: 10/05/20 20:57 Dose: 100 mls/hr Documented by: Admin: 10/05/20 16:20 Dose: 100 mls/hr Documented by: ILIANA Lactated Ringer's (Ringers, Lactated) 1,000 mls @ 50 mls/hr IV ASDIRECTED [facility] Last Admin: 10/07/20 16:08 Dose: 75 mls/hr Documented by: Infusion: 10/07/20 15:35 Dose: 75 mls/hr Documented by: Admin: 10/07/20 02:15 Dose: 75 mls/hr Documented by: JOHANNA Pantoprazole Sodium (Pantoprazole 40 Mg Vial) 40 mg IVPUSH DAILY [facility] Last Admin: 10/07/20 08:51 Dose: 40 mg Documented by: Admin: 10/06/20 09:17 Dose: 40 mg Documented by: Admin: 10/05/20 12:27 Dose: 40 mg Documented by: CHAPIN Propranolol HCl (Propranolol 10 Mg Tab) 20 mg PO BID [facility] Last Admin: 10/07/20 21:32 Dose: 20 mg Documented by: JESUS Sodium Chloride (Sodium Chloride 0.9% 10 Ml Syringe) 10 ml FLUSH ASDIRECTED PRN PRN Reason: Keep Vein Open Last Admin: 10/08/20 03:46 Dose: 10 ml Documented by: Admin: 10/07/20 21:33 Dose: 10 ml Documented by: Admin: 10/07/20 15:12 Dose: 10 ml Documented by: Admin: 10/07/20 08:51 Dose: 10 ml Documented by: Admin: 10/07/20 03:54 Dose: 10 ml Documented by: Admin: 10/07/20 03:25 Dose: 10 ml Documented by: Admin: 10/06/20 04:05 Dose: 10 ml Documented by: Admin: 10/06/20 04:00 Dose: 10 ml Documented by: Admin: 10/05/20 16:30 Dose: 10 ml Documented by: Admin: 10/05/20 12:50 Dose: 10 ml Documented by: ILIANA - Assessment Assessment (Free Text/Narrative):: Cont to do well Final Culture pending - Plan Plan (Free Text/Narrative):: Will advance diet
[2020-10-08] MEDS: Propranolol 10 MG Tab PO SCH (09:00)
[2020-10-08] MEDS: Carbidopa/Levodopa 25-100 MG Tab PO SCH ×3 (09:27→20:28)
[2020-10-08] MEDS: Pantoprazole 40 MG Vial IVPUSH SCH (09:28)
[2020-10-08] MEDS: Propranolol 20 MG Tab PO SCH ×2 (09:59→20:28)
[2020-10-08] MEDS: Lactated Ringers 1,000 ML IV SCH (10:13)
[2020-10-09] MEDS: Piperacillin/Tazobactam 3.375 GM in Sodium Chloride 0.9% 50 ML IV SCH (02:46)
[2020-10-09] MEDS: Sodium Chloride 0.9% 10 ML Syringe FLUSH PRN (03:25)
[2020-10-09] MEDS: Lactated Ringers 1,000 ML IV SCH (05:12)
[2020-10-09] MEDS: Acetaminophen/HYDROcodone 325-5 MG Tab PO PRN (06:24)
[2020-10-09] MEDS: Propranolol 20 MG Tab PO SCH ×2 (08:27→20:13)
[2020-10-09] MEDS: Carbidopa/Levodopa 25-100 MG Tab PO SCH ×3 (08:27→20:13)
[2020-10-09] MEDS ORDERED: Acetaminophen 500 MG Tab PO PRN (08:53)
[2020-10-09] MEDS: Pantoprazole 40 MG Tab.CR PO SCH ×3 (09:00→13:09)
[2020-10-09] MEDS: Ciprofloxacin 500 MG Tab PO SCH ×2 (13:02→20:13)
--- NOTE | 2020-10-09 16:38 | PCM.SURGPN ---
- General Info Date of Service: 10/09/20 POD#: 4 Functional Status: Reports: Pain Controlled, Tolerating Diet, Ambulating, Urinating - Review of Systems General: Reports: No Symptoms Pulmonary: Reports: No Symptoms Gastrointestinal: Reports: No Symptoms Genitourinary: Reports: No Symptoms - Patient Data Vitals - Most Recent: Last Vital Signs Temp 98 F 10/09/20 08:25 Pulse 67 10/09/20 08:25 Resp 16 10/09/20 08:25 BP 135/75 10/09/20 08:25 Pulse Ox 97 10/09/20 08:25 Weight - Most Recent: 70.052 kg I&O - Last 24 Hours: Intake & Output 10/09/20 10/09/20 10/09/20 06:59 14:59 22:59 Intake Total 430 413 Output Total 1230 205 200 Balance -800 208 -200 Lab Results Last 24 Hrs: Laboratory Results - last 24 hr 10/09/20 10/09/20 Range/Units 06:00 06:00 WBC 7.1 (3.2-10.1) x10-3/uL RBC 3.85 L (3.90-5.90) x10(6)uL Hgb 11.9 L (12.9-17.7) g/dL Hct 34.8 L (38.3-50.1) % MCV 90.2 (80.8-98.7) fL MCH 31.0 (27.0-33.3) pg MCHC 34.3 (28.7-35.3) g/dL RDW 13.9 (12.4-15.0) % Plt Count 167 (117-477) x10(3)uL MPV 7.5 (6.7-11.0) fL Neut % (Auto) 67.6 (40.3-71.8) % Lymph % (Auto) 18.0 (15.8-45.3) % Cedar % (Auto) 7.5 (5.5-15.2) % Eos % (Auto) 6.4 (0.1-6.8) % Baso % (Auto) 0.5 (0.3-3.8) % Neut # (Auto) 4.8 (1.7-6.9) x10-3/uL Lymph # (Auto) 1.3 (0.5-4.5) x10-3/uL Cedar # (Auto) 0.5 (0.0-1.2) x10-3/uL Eos # (Auto) 0.5 (0.0-0.6) x10-3/uL Baso # (Auto) 0.0 (0.0-0.3) x10-3/uL Sodium 140 (135-145) mmol/L Potassium 3.4 L (3.5-5.3) mmol/L Chloride 102 (100-110) mmol/L Carbon Dioxide 28 (21-32) mmol/L BUN 10 (7-18) mg/dL Creatinine 0.8 (0.70-1.30) mg/dL Est Cr Clr Drug Dosing 60.47 mL/min Estimated GFR (MDRD) > 60 (>60) BUN/Creatinine Ratio 12.5 (9-20) Glucose 107 (80-116) mg/dL Calcium 7.8 L (8.6-10.2) mg/dL Total Bilirubin 1.0 (0.1-1.3) mg/dL AST 26 H D (5-25) IU/L ALT 15 D (12-36) U/L Alkaline Phosphatase 46 L (56-112) IU/L Total Protein 5.3 L (6.0-8.0) g/dL Albumin 2.2 L (3.2-4.6) g/dL Globulin 3.1 g/dL Albumin/Globulin Ratio 0.7 Azael Results Last 24 Hrs: Microbiology 10/05/20 10:04 Gram Stain - Final Gallbladder Routine Culture - Final Med Orders - Current: Current Medications Acetaminophen (Acetaminophen 500 Mg Tab) 500 mg PO Q6H PRN PRN Reason: Pain Hydrocodone Bitart/Acetaminophen (Acetaminophen/Hydrocodone 325-5 Mg Tab) 1 tab PO Q4H PRN PRN Reason: Pain (mild 1-3) Last Admin: 10/09/20 06:24 Dose: 1 tab Documented by: Carbidopa/Levodopa (Carbidopa/Levodopa 25-100 Mg Tab) 2 tab PO TID [facility] Last Admin: 10/09/20 13:10 Dose: 2 tab Documented by: Ciprofloxacin (Ciprofloxacin 500 Mg Tab) 500 mg PO BID [facility] Last Admin: 10/09/20 13:02 Dose: 500 mg Documented by: Sodium Chloride (Normal Saline) 250 mls @ 100 mls/hr IV ASDIRECTED [facility] Last Admin: 10/05/20 14:13 Dose: 100 mls/hr Documented by: Pantoprazole Sodium (Pantoprazole 40 Mg Tab.Cr) 40 mg PO 0600 [facility] Last Admin: 10/09/20 13:09 Dose: 40 mg Documented by: Propranolol HCl (Propranolol 20 Mg Tab) 20 mg PO BID [facility] Last Admin: 10/09/20 08:27 Dose: 20 mg Documented by: Sertraline HCl (Sertraline 50 Mg Tab) 50 mg PO BEDTIME [facility] Sodium Chloride (Sodium Chloride 0.9% 10 Ml Syringe) 10 ml FLUSH ASDIRECTED PRN PRN Reason: Keep Vein Open Last Admin: 10/09/20 03:25 Dose: 10 ml Documented by: Discontinued Medications Hydromorphone HCl (Hydromorphone 2 Mg/Ml Sdv) 0.5 mg IVPUSH Q2H PRN PRN Reason: Pain (moderate 4-6) Hydromorphone HCl (Hydromorphone 2 Mg/Ml Sdv) 2 mg IVPUSH ONETIME ONE Stop: 10/05/20 13:30 Last Admin: 10/05/20 13:55 Dose: 2 mg Documented by: Hydromorphone HCl (Hydromorphone 2 Mg/Ml Sdv) 1 mg IVPUSH Q1H PRN PRN Reason: Pain Last Admin: 10/06/20 21:02 Dose: 1 mg Documented by: Hydromorphone HCl (Hydromorphone 2 Mg/Ml Sdv) 0.5 mg IVPUSH Q2H PRN PRN Reason: Pain Last Admin: 10/07/20 05:59 Dose: 0.5 mg Documented by: Lactated Ringer's (Ringers, Lactated) 1,000 mls @ 100 mls/hr IV ASDIRECTED [facility] Last Admin: 10/06/20 14:55 Dose: 125 mls/hr Documented by: Piperacillin Sod/Tazobactam (Sod 3.375 gm/ Sodium Chloride) 50 mls @ 100 mls/hr IV Q6H [facility] Last Admin: 10/05/20 08:55 Dose: 100 mls/hr Documented by: Piperacillin Sod/Tazobactam (Sod 3.375 gm/ Sodium Chloride) 50 mls @ 100 mls/hr IV Q6H [facility] Last Admin: 10/09/20 02:46 Dose: 100 mls/hr Documented by: Lactated Ringer's (Ringers, Lactated) 1,000 mls @ 333 mls/hr IV ASDIRECTED [facility] Stop: 10/06/20 05:16 Last Admin: 10/06/20 02:21 Dose: 333 mls/hr Documented by: Lactated Ringer's (Ringers, Lactated) 1,000 mls @ 50 mls/hr IV ASDIRECTED [facility] Last Admin: 10/09/20 05:12 Dose: 50 mls/hr Documented by: Pantoprazole Sodium (Pantoprazole 40 Mg Vial) 40 mg IVPUSH DAILY [facility] Last Admin: 10/08/20 09:28 Dose: 40 mg Documented by: Propranolol HCl (Propranolol 20 Mg Tab) 20 mg PO BID [facility] Last Admin: 10/07/20 21:54 Dose: Not Given Documented by: Propranolol HCl (Propranolol 10 Mg Tab) 20 mg PO BID [facility] Last Admin: 10/08/20 09:00 Dose: Not Given Documented by: - Exam Wound/Incisions: Healing Well, Dressing Dry and Intact General: Alert, Oriented Lungs: Clear to Auscultation GI/Abdominal Exam: Soft, Non-Tender, Other (Minimal serous NEHAL output) Sepsis Event Note - Evaluation Sepsis Screening Result: No Definite Risk - Focused Exam Vital Signs: Vital Signs Temp Pulse Resp BP Pulse Ox 10/09/20 08:25 98 F 67 16 135/75 97 - Problem List Review Problem List Initiated/Reviewed/Updated: Yes - My Orders Last 24 Hours: Active Orders 24 hr Category Date Time Status Acetaminophen [Tylenol Extra Strength] Med 10/09/20 08:53 Active 500 mg PO Q6H PRN Ciprofloxacin [Ciprofloxacin HCl] Med 10/09/20 09:00 Active 500 mg PO BID Pantoprazole [ProTONIX] Med 10/09/20 08:42 Active 40 mg PO 0600 Sertraline [Zoloft] Med 10/09/20 21:00 Active 50 mg PO BEDTIME Convert IV to Saline Lock [OM.PC] Routine Oth 10/09/20 08:48 Ordered Medication Orders Acetaminophen (Acetaminophen 500 Mg Tab) 500 mg PO Q6H PRN PRN Reason: Pain Hydrocodone Bitart/Acetaminophen (Acetaminophen/Hydrocodone 325-5 Mg Tab) 1 tab PO Q4H PRN PRN Reason: Pain (mild 1-3) Last Admin: 10/09/20 06:24 Dose: 1 tab Documented by: Admin: 10/07/20 21:32 Dose: 1 tab Documented by: Admin: 10/07/20 08:48 Dose: 1 tab Documented by: Admin: 10/06/20 14:35 Dose: 1 tab Documented by: BRENNA Carbidopa/Levodopa (Carbidopa/Levodopa 25-100 Mg Tab) 2 tab PO TID [facility] Last Admin: 10/09/20 13:10 Dose: 2 tab Documented by: Admin: 10/09/20 08:27 Dose: 2 tab Documented by: Admin: 10/08/20 20:28 Dose: 2 tab Documented by: Admin: 10/08/20 14:43 Dose: 2 tab Documented by: Admin: 10/08/20 09:27 Dose: 2 tab Documented by: Admin: 10/07/20 20:43 Dose: 2 tab Documented by: Admin: 10/07/20 15:11 Dose: 2 tab Documented by: Admin: 10/07/20 08:50 Dose: 2 tab Documented by: Admin: 10/06/20 20:14 Dose: 2 tab Documented by: Admin: 10/06/20 14:35 Dose: 2 tab Documented by: Admin: 10/06/20 09:17 Dose: 2 tab Documented by: Admin: 10/05/20 20:57 Dose: 2 tab Documented by: JOHANNA Ciprofloxacin (Ciprofloxacin 500 Mg Tab) 500 mg PO BID [facility] Last Admin: 10/09/20 13:02 Dose: 500 mg Documented by: SYLVIE Sodium Chloride (Normal Saline) 250 mls @ 100 mls/hr IV ASDIRECTED [facility] Last Admin: 10/05/20 14:13 Dose: 100 mls/hr Documented by: ILIANA Pantoprazole Sodium (Pantoprazole 40 Mg Tab.Cr) 40 mg PO 0600 [facility] Last Admin: 10/09/20 13:09 Dose: 40 mg Documented by: Admin: 10/09/20 09:00 Dose: Not Given Documented by: SYLVIE Propranolol HCl (Propranolol 20 Mg Tab) 20 mg PO BID [facility] Last Admin: 10/09/20 08:27 Dose: 20 mg Documented by: Admin: 10/08/20 20:28 Dose: 20 mg Documented by: Admin: 10/08/20 09:59 Dose: 20 mg Documented by: SYLVIE Sertraline HCl (Sertraline 50 Mg Tab) 50 mg PO BEDTIME [facility] Sodium Chloride (Sodium Chloride 0.9% 10 Ml Syringe) 10 ml FLUSH ASDIRECTED PRN PRN Reason: Keep Vein Open Last Admin: 10/09/20 03:25 Dose: 10 ml Documented by: Admin: 10/08/20 20:29 Dose: 10 ml Documented by: Admin: 10/08/20 15:15 Dose: 10 ml Documented by: Admin: 10/08/20 03:46 Dose: 10 ml Documented by: Admin: 10/07/20 21:33 Dose: 10 ml Documented by: Admin: 10/07/20 15:12 Dose: 10 ml Documented by: Admin: 10/07/20 08:51 Dose: 10 ml Documented by: Admin: 10/07/20 03:54 Dose: 10 ml Documented by: Admin: 10/07/20 03:25 Dose: 10 ml Documented by: Admin: 10/06/20 04:05 Dose: 10 ml Documented by: Admin: 10/06/20 04:00 Dose: 10 ml Documented by: Admin: 10/05/20 16:30 Dose: 10 ml Documented by: Admin: 10/05/20 12:50 Dose: 10 ml Documented by: ILIANA - Assessment Assessment (Free Text/Narrative):: Doing well, tolerating diet Cultures show e coli sensitive to Cipro - Plan Plan (Free Text/Narrative):: Adv diet Pulled NEHAL drain D/C Zosyn and start oral Cipro Should be ready for swingbed on Mon
[2020-10-09] MEDS: Sertraline 50 MG Tab PO SCH (20:13)
[2020-10-10] MEDS: Pantoprazole 40 MG Tab.CR PO SCH (05:48)
[2020-10-10] MEDS: Acetaminophen/HYDROcodone 325-5 MG Tab PO PRN ×2 (05:56→20:50)
[2020-10-10] MEDS: Carbidopa/Levodopa 25-100 MG Tab PO SCH ×3 (08:02→20:37)
[2020-10-10] MEDS: Propranolol 20 MG Tab PO SCH ×2 (08:02→20:37)
[2020-10-10] MEDS: Ciprofloxacin 500 MG Tab PO SCH ×2 (08:09→20:47)
[2020-10-10] MEDS: Sodium Chloride 0.9% 10 ML Syringe FLUSH PRN (08:14)
--- NOTE | 2020-10-10 20:34 | PCM.SURGPN ---
- General Info Date of Service: 10/10/20 POD#: 5 Functional Status: Reports: Pain Controlled, Tolerating Diet, Ambulating - Review of Systems General: Reports: No Symptoms Gastrointestinal: Reports: No Symptoms, Other (BM this am) - Patient Data Vitals - Most Recent: Last Vital Signs Temp 97.6 F 10/10/20 07:40 Pulse 59 L 10/10/20 07:40 Resp 16 10/10/20 07:40 BP 135/75 10/09/20 08:25 Pulse Ox 97 10/10/20 07:40 Weight - Most Recent: 70.052 kg Med Orders - Current: Current Medications Acetaminophen (Acetaminophen 500 Mg Tab) 500 mg PO Q6H PRN PRN Reason: Pain Hydrocodone Bitart/Acetaminophen (Acetaminophen/Hydrocodone 325-5 Mg Tab) 1 tab PO Q4H PRN PRN Reason: Pain (mild 1-3) Last Admin: 10/10/20 05:56 Dose: 1 tab Documented by: Carbidopa/Levodopa (Carbidopa/Levodopa 25-100 Mg Tab) 2 tab PO TID [facility] Last Admin: 10/10/20 13:52 Dose: 2 tab Documented by: Ciprofloxacin (Ciprofloxacin 500 Mg Tab) 500 mg PO BID [facility] Last Admin: 10/10/20 08:09 Dose: 500 mg Documented by: Sodium Chloride (Normal Saline) 250 mls @ 100 mls/hr IV ASDIRECTED [facility] Last Admin: 10/05/20 14:13 Dose: 100 mls/hr Documented by: Pantoprazole Sodium (Pantoprazole 40 Mg Tab.Cr) 40 mg PO 0600 [facility] Last Admin: 10/10/20 05:48 Dose: 40 mg Documented by: Propranolol HCl (Propranolol 20 Mg Tab) 20 mg PO BID [facility] Last Admin: 10/10/20 08:02 Dose: 20 mg Documented by: Sertraline HCl (Sertraline 50 Mg Tab) 50 mg PO BEDTIME [facility] Last Admin: 10/09/20 20:13 Dose: 50 mg Documented by: Sodium Chloride (Sodium Chloride 0.9% 10 Ml Syringe) 10 ml FLUSH ASDIRECTED PRN PRN Reason: Keep Vein Open Last Admin: 10/10/20 08:14 Dose: 10 ml Documented by: Discontinued Medications Hydromorphone HCl (Hydromorphone 2 Mg/Ml Sdv) 0.5 mg IVPUSH Q2H PRN PRN Reason: Pain (moderate 4-6) Hydromorphone HCl (Hydromorphone 2 Mg/Ml Sdv) 2 mg IVPUSH ONETIME ONE Stop: 10/05/20 13:30 Last Admin: 10/05/20 13:55 Dose: 2 mg Documented by: Hydromorphone HCl (Hydromorphone 2 Mg/Ml Sdv) 1 mg IVPUSH Q1H PRN PRN Reason: Pain Last Admin: 10/06/20 21:02 Dose: 1 mg Documented by: Hydromorphone HCl (Hydromorphone 2 Mg/Ml Sdv) 0.5 mg IVPUSH Q2H PRN PRN Reason: Pain Last Admin: 10/07/20 05:59 Dose: 0.5 mg Documented by: Lactated Ringer's (Ringers, Lactated) 1,000 mls [facility] Last Admin: 10/06/20 14:55 Dose: 125 mls/hr Documented by: Piperacillin Sod/Tazobactam (Sod 3.375 gm/ Sodium Chloride) 50 mls @ 100 mls/hr IV Q6H [facility] Last Admin: 10/05/20 08:55 Dose: 100 mls/hr Documented by: Piperacillin Sod/Tazobactam (Sod 3.375 gm/ Sodium Chloride) 50 mls @ 100 mls/hr IV Q6H [facility] Last Admin: 10/09/20 02:46 Dose: 100 mls/hr Documented by: Lactated Ringer's (Ringers, Lactated) 1,000 mls @ 333 [facility] Stop: 10/06/20 05:16 Last Admin: 10/06/20 02:21 Dose: 333 mls/hr Documented by: Lactated Ringer's (Ringers, Lactated) 1,000 mls @ 50 [facility]ls[facility] Last Admin: 10/09/20 05:12 Dose: 50 mls/hr Documented by: Pantoprazole Sodium (Pantoprazole 40 Mg Vial) 40 mg IVPUSH DAILY [facility] Last Admin: 10/08/20 09:28 Dose: 40 mg Documented by: Propranolol HCl (Propranolol 20 Mg Tab) 20 mg PO BID [facility] Last Admin: 10/07/20 21:54 Dose: Not Given Documented by: Propranolol HCl (Propranolol 10 Mg Tab) 20 mg PO BID [facility] Last Admin: 10/08/20 09:00 Dose: Not Given Documented by: - Exam Wound/Incisions: Healing Well, Dressing Dry and Intact Lungs: Clear to Auscultation GI/Abdominal Exam: Soft, Non-Tender Sepsis Event Note - Evaluation Sepsis Screening Result: No Definite Risk - Problem List Review Problem List Initiated/Reviewed/Updated: Yes - My Orders Last 24 Hours: Active Orders 24 hr Category Date Time Status Regular Diet [DIET] Diet 10/10/20 Dinner Active Sertraline [Zoloft] Med 10/09/20 21:00 Active 50 mg PO BEDTIME Medication Orders Acetaminophen (Acetaminophen 500 Mg Tab) 500 mg PO Q6H PRN PRN Reason: Pain Hydrocodone Bitart/Acetaminophen (Acetaminophen/Hydrocodone 325-5 Mg Tab) 1 tab PO Q4H PRN PRN Reason: Pain (mild 1-3) Last Admin: 10/10/20 05:56 Dose: 1 tab Documented by: Admin: 10/09/20 06:24 Dose: 1 tab Documented by: Admin: 10/07/20 21:32 Dose: 1 tab Documented by: Admin: 10/07/20 08:48 Dose: 1 tab Documented by: Admin: 10/06/20 14:35 Dose: 1 tab Documented by: BRENNA Carbidopa/Levodopa (Carbidopa/Levodopa 25-100 Mg Tab) 2 tab PO TID [facility] Last Admin: 10/10/20 13:52 Dose: 2 tab Documented by: Admin: 10/10/20 08:02 Dose: 2 tab Documented by: Admin: 10/09/20 20:13 Dose: 2 tab Documented by: Admin: 10/09/20 13:10 Dose: 2 tab Documented by: Admin: 10/09/20 08:27 Dose: 2 tab Documented by: Admin: 10/08/20 20:28 Dose: 2 tab Documented by: Admin: 10/08/20 14:43 Dose: 2 tab Documented by: Admin: 10/08/20 09:27 Dose: 2 tab Documented by: Admin: 10/07/20 20:43 Dose: 2 tab Documented by: Admin: 10/07/20 15:11 Dose: 2 tab Documented by: Admin: 10/07/20 08:50 Dose: 2 tab Documented by: Admin: 10/06/20 20:14 Dose: 2 tab Documented by: Admin: 10/06/20 14:35 Dose: 2 tab Documented by: Admin: 10/06/20 09:17 Dose: 2 tab Documented by: Admin: 10/05/20 20:57 Dose: 2 tab Documented by: JOHANNA Ciprofloxacin (Ciprofloxacin 500 Mg Tab) 500 mg PO BID [facility] Last Admin: 10/10/20 08:09 Dose: 500 mg Documented by: Admin: 10/09/20 20:13 Dose: 500 mg Documented by: Admin: 10/09/20 13:02 Dose: 500 mg Documented by: SYLVIE Sodium Chloride (Normal Saline) 250 mls @ 100 mls/hr IV ASDIRECTED [facility] Last Admin: 10/05/20 14:13 Dose: 100 mls/hr Documented by: ILIANA Pantoprazole Sodium (Pantoprazole 40 Mg Tab.Cr) 40 mg PO 0600 [facility] Last Admin: 10/10/20 05:48 Dose: 40 mg Documented by: Admin: 10/09/20 13:09 Dose: 40 mg Documented by: Admin: 10/09/20 09:00 Dose: Not Given Documented by: SYLVIE Propranolol HCl (Propranolol 20 Mg Tab) 20 mg PO BID [facility] Last Admin: 10/10/20 08:02 Dose: 20 mg Documented by: Admin: 10/09/20 20:13 Dose: 20 mg Documented by: Admin: 10/09/20 08:27 Dose: 20 mg Documented by: Admin: 10/08/20 20:28 Dose: 20 mg Documented by: Admin: 10/08/20 09:59 Dose: 20 mg Documented by: SYLVIE Sertraline HCl (Sertraline 50 Mg Tab) 50 mg PO BEDTIME [facility] Last Admin: 10/09/20 20:13 Dose: 50 mg Documented by: JESUS Sodium Chloride (Sodium Chloride 0.9% 10 Ml Syringe) 10 ml FLUSH ASDIRECTED PRN PRN Reason: Keep Vein Open Last Admin: 10/10/20 08:14 Dose: 10 ml Documented by: Admin: 10/09/20 03:25 Dose: 10 ml Documented by: Admin: 10/08/20 20:29 Dose: 10 ml Documented by: Admin: 10/08/20 15:15 Dose: 10 ml Documented by: Admin: 10/08/20 03:46 Dose: 10 ml Documented by: Admin: 10/07/20 21:33 Dose: 10 ml Documented by: Admin: 10/07/20 15:12 Dose: 10 ml Documented by: Admin: 10/07/20 08:51 Dose: 10 ml Documented by: Admin: 10/07/20 03:54 Dose: 10 ml Documented by: Admin: 10/07/20 03:25 Dose: 10 ml Documented by: Admin: 10/06/20 04:05 Dose: 10 ml Documented by: Admin: 10/06/20 04:00 Dose: 10 ml Documented by: Admin: 10/05/20 16:30 Dose: 10 ml Documented by: Admin: 10/05/20 12:50 Dose: 10 ml Documented by: ILIANA - Assessment Assessment (Free Text/Narrative):: Doing well - Plan Plan (Free Text/Narrative):: Transfer to [facility] in am
[2020-10-10] MEDS: Sertraline 50 MG Tab PO SCH (20:47)
[2020-10-11] MEDS: Pantoprazole 40 MG Tab.CR PO SCH (05:44)
[2020-10-11] MEDS: Carbidopa/Levodopa 25-100 MG Tab PO SCH (08:15)
[2020-10-11] MEDS: Propranolol 20 MG Tab PO SCH (08:15)
[2020-10-11] MEDS: Ciprofloxacin 500 MG Tab PO SCH (08:18)
[2020-10-11] MEDS: Sodium Chloride 0.9% 10 ML Syringe FLUSH PRN (08:20)
[2020-10-11] MEDS: Acetaminophen/HYDROcodone 325-5 MG Tab PO PRN (08:31)
--- NOTE | 2020-10-13 13:22 | PCM.DCSUM1 ---
Discharge Summary - Hospital Course Free Text/Narrative:: Admitted on October 03 for lap converted to open cholecystectomy Brief History: Had several week hx of abdominal epigastric pain and weight loss with evidence of Cholecystitis/Cholelithiasis onCT scan. - Discharge Data Discharge Date: 10/11/20 Discharge Disposition: Home, Self-Care 01 Condition: Good - Referral to Home Health Primary Care Physician: PCP Unknown - Patient Summary/Data Operative Procedure(s) Performed: Lap converted to open cholecystectomy on 10/04/20 Complications: none Consults: Consultations 10/11/20 13:42 OT Evaluation and Treatment [CONS] Routine Please Evaluate and Treat. OT Reason for Consult: ADL's This query below is only for informational purposes and is not editable. PT Evaluation and Treatment [CONS] Routine Please Evaluate and Treat. PT Reason for Consult: Ambulation This query below is only for informational purposes and is not editable. Hospital Course: Post op was uneventful. Cultures showed E coli treated with IV Zosyn initially and changed to Cipro on POD #4. NEHAL drain was pulled on POD #4. Bowel function returned after 2 days and is tolerating diet well. Still is weak and would benefit for swingbed. - Patient Instructions Diet: Usual Diet as Tolerated Activity: No Strenuous Activities (for 4 weeks) Showering/Bathing: May Shower Wound/Incision Care: Keep Operative Site/Wound Site Clean and Dry - Discharge Plan Home Medications: Home Meds Carbidopa/Levodopa [Carbidopa-Levodopa 25-100] 2 tab PO TID 08/31/20 [History] Propranolol [Inderal] 20 mg PO BID 08/31/20 [History] Simvastatin 20 mg PO BEDTIME 08/31/20 [History] Aspirin 81 mg PO DAILY 10/04/20 [History] Carboxymethyl/Glycerin/Poly80 [Refresh Optive Advanced Drops] 1 drop EYEBOTH TID 10/04/20 [History] Glucosamine [Glucosamine Sulfate] 1 cap PO BID 10/04/20 [History] Hypromellose [Genteal Mild] 1 drop OP ASDIRECTED 10/04/20 [History] Lutein Extract/Zeaxanthin Ext [Lutein 15 MG Softgel] 20 mg PO DAILY 10/04/20 [History] Multivitamin Combination No.56 [Clem-Life Multivitamin] 1 each PO DAILY 10/04/20 [History] [place]-3/DHA/Epa/Fish Oil [[place] 3 500 Softgel] 1 each PO DAILY 10/04/20 [History] Omeprazole 20 mg PO DAILY 10/04/20 [History] Sertraline HCl [Zoloft] 50 mg PO BEDTIME 10/04/20 [History] - Discharge Summary/Plan Comment DC Time >30 min.: No - Patient Data Vitals - Most Recent: Last Vital Signs Temp 97.8 F 10/13/20 02:52 Pulse 67 10/13/20 02:52 Resp 16 10/13/20 02:52 BP 110/64 10/13/20 02:52 Pulse Ox 96 10/13/20 02:52 Weight - Most Recent: 70.171 kg Med Orders - Current: Current Medications Carbidopa/Levodopa (Carbidopa/Levodopa 25-100 Mg Tab) 2 tab PO TID [facility] Last Admin: 10/13/20 09:03 Dose: 2 tab Documented by: Fish Oil (Fish Oil/[place]-3 Fatty Acids 1 Gm Cap) 1 gm PO DAILY [facility] Last Admin: 10/13/20 09:03 Dose: 1 gm Documented by: Glucosamine Sulfate (Glucosamine 500 Mg Cap) 500 mg PO BID [facility] Last Admin: 10/13/20 09:03 Dose: 500 mg Documented by: Lutein (Lutein 10 Mg Tab) 20 mg PO DAILY [facility] Last Admin: 10/13/20 09:03 Dose: 20 mg Documented by: Multivitamins/Minerals/Vitamin C (Multivitamin Tab) 1 tab PO DAILY [facility] Last Admin: 10/13/20 09:04 Dose: 1 tab Documented by: Pantoprazole Sodium (Pantoprazole 40 Mg Tab.Cr) 40 mg PO 0600 [facility] Last Admin: 10/13/20 05:44 Dose: 40 mg Documented by: Propranolol HCl (Propranolol 20 Mg Tab) 20 mg PO BID [facility] Last Admin: 10/13/20 09:03 Dose: 20 mg Documented by: Sertraline HCl (Sertraline 50 Mg Tab) 50 mg PO BEDTIME [facility] Last Admin: 10/12/20 20:14 Dose: 50 mg Documented by: Simvastatin (Simvastatin 20 Mg Tab) 20 mg PO BEDTIME [facility] Last Admin: 10/12/20 20:13 Dose: 20 mg Documented by: Discontinued Medications Ciprofloxacin (Ciprofloxacin 500 Mg Tab) 500 mg PO BID [facility] Stop: 10/12/20 21:01 Last Admin: 10/12/20 20:13 Dose: 500 mg Documented by:
== END 2020-10-11 12:50 | disposition home or self-care (01) | DRG 446 ==
LOC: FB.SDS 06:26 → FB.MS 12:35
PROVIDERS: ADMIT Surgery; ATTEND Surgery
DX: K80.10 Calculus of gallbladder with chronic cholecystitis without obstruction (principal); B96.20 Unspecified Escherichia coli [E. coli] as the cause of diseases classified elsewhere; Z79.82 Long term (current) use of aspirin; Z79.899 Other long term (current) drug therapy; Z20.822 Contact with and (suspected) exposure to COVID-19; K82.A1 Gangrene of gallbladder in cholecystitis; Z53.31 Laparoscopic surgical procedure converted to open procedure; K66.0 Peritoneal adhesions (postprocedural) (postinfection)
CPT/HCPCS: 00790-QZ; 36415; 36430; 80048; 80053; 85014; 85018; 85025; 85027; 86850; 86900; 86901; 86920; 86922; 87070; 87075; 87077; 87186; 87205; 88304; 94150; 94760; 97116-GP; 97161-GP; 97165-GO; 97530-GO; 97530-GP; 97535-GO; A9270-GY; C9113; J1170; J1885; J2250; J2405; J2543; J2704; J3010; J3490; J7030; J7040; J7050; J7120; P9016; U0002

== ENCOUNTER 2020-10-11 11:43 | Inpatient (IN) | payer MEDICARE, BC ==
[2020-10-11] MEDS ORDERED: Carbidopa/Levodopa 25-100 MG Tab PO SCH (14:00)
[2020-10-11] MEDS ORDERED: CARBOXYMETHYL EYEBOTH SCH (14:00)
[2020-10-11] MEDS ORDERED: GLYCERIN EYEBOTH SCH (14:00)
[2020-10-11] MEDS ORDERED: HYPROMELLOSE OP SCH (14:00)
[2020-10-11] MEDS ORDERED: [UNRECOGNIZED DRUG - OTHER] EYEBOTH SCH (14:00)
[2020-10-11] MEDS ORDERED: POLY80 EYEBOTH SCH (14:00)
[2020-10-11] MEDS: Carbidopa/Levodopa 25-100 MG Tab PO SCH ×2 (14:22→20:35)
[2020-10-11] MEDS: Fish Oil/Omega-3 Fatty Acids 1 Gm Cap PO SCH (16:21)
[2020-10-11] MEDS: Glucosamine 500 MG Cap PO SCH ×2 (16:23→20:35)
[2020-10-11] MEDS: Multivitamin Tab PO SCH (16:24)
[2020-10-11] MEDS: Ciprofloxacin 500 MG Tab PO SCH (20:34)
[2020-10-11] MEDS: Propranolol 20 MG Tab PO SCH (20:35)
[2020-10-11] MEDS: Simvastatin 20 MG Tab PO SCH (20:35)
[2020-10-11] MEDS: Sertraline 50 MG Tab PO SCH (20:35)
--- NOTE | 2020-10-11 21:14 | PCM.HP.2 ---
H&P History of Present Illness - General Date of Service: 10/11/20 Admit Problem/Dx: Admission Diagnosis/Problem Admission Diagnosis/Problem Weakness Source of Information: Patient, Old Records, RN Notes Reviewed History Limitations: Reports: No Limitations - History of Present Illness Initial Comments - Free Text/Narative: Sachin was admitted to today after open cholecystectomy a few days ago. He received 2 units PRBCs post op.He has weakness and debility and needs PT and OT. He has a h/o Parkinson's Disease,Fatigue,and MEÑO.Lives alone in [place] Abdomen Pain Score (Numeric/FACES): 2 - Related Data Allergies/Adverse Reactions: Allergies Allergy/AdvReac Type Severity Reaction Status Date / Time No Known Allergies Allergy Verified 10/05/20 07:05 Home Medications: Home Meds Carbidopa/Levodopa [Carbidopa-Levodopa 25-100] 2 tab PO TID 08/31/20 [History] Propranolol [Inderal] 20 mg PO BID 08/31/20 [History] Simvastatin 20 mg PO BEDTIME 08/31/20 [History] Aspirin 81 mg PO DAILY 10/04/20 [History] Carboxymethyl/Glycerin/Poly80 [Refresh Optive Advanced Drops] 1 drop EYEBOTH TID 10/04/20 [History] Glucosamine [Glucosamine Sulfate] 1 cap PO BID 10/04/20 [History] Hypromellose [Genteal Mild] 1 drop OP ASDIRECTED 10/04/20 [History] Lutein Extract/Zeaxanthin Ext [Lutein 15 MG Softgel] 20 mg PO DAILY 10/04/20 [History] Multivitamin Combination No.56 [Clem-Life Multivitamin] 1 each PO DAILY 10/04/20 [History] [place]-3/DHA/Epa/Fish Oil [[place] 3 500 Softgel] 1 each PO DAILY 10/04/20 [History] Omeprazole 20 mg PO DAILY 10/04/20 [History] Sertraline HCl [Zoloft] 50 mg PO BEDTIME 10/04/20 [History] Past Medical History HEENT History: Reports: Impaired Vision Cardiovascular History: Reports: None Respiratory History: Reports: None Gastrointestinal History: Reports: GERD Genitourinary History: Reports: None Musculoskeletal History: Reports: Other (See Below) Other Musculoskeletal History: has parkinsons, has hand tremors. Neurological History: Reports: Parkinson's Psychiatric History: Reports: None Endocrine/Metabolic History: Reports: None Hematologic History: Reports: None Oncologic (Cancer) History: Reports: None Dermatologic History: Reports: None - Past Surgical History Cardiovascular Surgical History: Reports: None Respiratory Surgical History: Reports: None GI Surgical History: Reports: Cholecystectomy, Other (See Below) Other GI Surgeries/Procedures: OPEN GALLBLADDER TODAY. Male Surgical History: Reports: None Endocrine Surgical History: Reports: None Neurological Surgical History: Reports: None Musculoskeletal Surgical History: Reports: Other (See Below) Other Musculoskeletal Surgeries/Procedures:: HAND SURGERY Oncologic Surgical History: Reports: None Dermatological Surgical History: Reports: None Social & Family History - Family History Family Medical History: No Pertinent Family History - Tobacco Use Tobacco Use Status *Q: Never Tobacco User Second Hand Smoke Exposure: No - Caffeine Use Caffeine Use: Reports: Coffee Other Caffeine Use: drinks soda and tea-seldom - Recreational Drug Use Recreational Drug Use: No H&P Review of Systems - Review of Systems: Review Of Systems: Comprehensive ROS is negative, except as noted in HPI. Exam - Exam Exam: See Below - Vital Signs Vital Signs: Last Vital Signs Temp 97.5 F 10/11/20 14:44 Pulse 60 10/11/20 14:44 Resp 16 10/11/20 14:44 BP 132/73 10/11/20 14:44 Pulse Ox 99 10/11/20 14:44 Weight: 70.171 kg - Exam General: Alert HEENT: PERRLA Neck: Supple Cardiovascular: Regular Rate, Regular Rhythm GI/Abdominal Exam: Normal Bowel Sounds (Male) Exam: No Hernia Back Exam: Normal Inspection Extremities: Normal Inspection Skin: Warm Neurological: Cranial Nerves Intact Neuro Extensive - Mental Status: Alert, Oriented x3 Neuro Extensive - Motor, Sensory, Reflexes: CN II-XII Intact Psychiatric: Alert, Normal Affect - Patient Data Result Diagrams: 10/12/20 06:05 10/12/20 06:05 Sepsis Event Note - Evaluation Sepsis Screening Result: No Definite Risk - Focused Exam Vital Signs: Vital Signs Temp Pulse Resp BP Pulse Ox 10/11/20 14:44 97.5 F 60 16 132/73 99 - Problem List (1) S/P cholecystectomy SNOMED Code(s): 509452102, 29761907, 081893818 ICD Code: Z90.49 - ACQUIRED ABSENCE OF OTHER SPECIFIED PARTS OF DIGESTIVE TRACT Status: Acute Current Visit: Yes (2) Parkinson disease SNOMED Code(s): 52543054 ICD Code: G20 - PARKINSON'S DISEASE Status: Acute Current Visit: Yes (3) Weakness SNOMED Code(s): 07110326 ICD Code: R53.1 - WEAKNESS Status: Acute Current Visit: Yes (4) Atypical chest pain SNOMED Code(s): 501189274 ICD Code: R07.89 - OTHER CHEST PAIN Status: Acute Current Visit: No (5) GERD (gastroesophageal reflux disease) SNOMED Code(s): 049051292 ICD Code: K21.9 - GASTRO-ESOPHAGEAL REFLUX DISEASE WITHOUT ESOPHAGITIS Status: Acute Current Visit: No (6) SOB (shortness of breath) SNOMED Code(s): 283567056 ICD Code: R06.02 - SHORTNESS OF BREATH Status: Acute Current Visit: Yes Problem List Initiated/Reviewed/Updated: Yes Orders Last 24hrs: Active Orders 24 hr Category Date Time Status Patient Status [ADT] Routine ADT 10/11/20 13:42 Active Height and Weight [RC] WEEKLY Care 10/11/20 13:42 Active Oxygen Therapy [RC] PRN Care 10/11/20 13:42 Active VTE/DVT Education [RC] Per Unit Routine Care 10/11/20 13:42 Active Vital Signs [RC] PER UNIT ROUTINE Care 10/11/20 13:42 Active OT Evaluation and Treatment [CONS] Routine Cons 10/11/20 13:42 Active PT Evaluation and Treatment [CONS] Routine Cons 10/11/20 13:42 Active Regular Diet [DIET] Diet 10/11/20 Breakfast Active Carbidopa/Levodopa [Sinemet 25-100 mg] Med 10/11/20 14:00 Active 2 tab PO TID Ciprofloxacin [Ciprofloxacin HCl] Med 10/11/20 21:00 Active 500 mg PO BID Fish Oil/[place]-3 Fatty Acids [Fish Oil] Med 10/12/20 09:00 Active 1 gm PO DAILY Glucosamine [Glucosamine Sulfate] Med 10/11/20 21:00 Active 500 mg PO BID Lutein Med 10/12/20 09:00 Active 20 mg PO DAILY Multivitamins [Tab-A-Callie] Med 10/12/20 09:00 Active 1 tab PO DAILY Pantoprazole [ProTONIX] Med 10/12/20 06:00 Active 40 mg PO 0600 Propranolol [Inderal] Med 10/11/20 21:00 Active 20 mg PO BID Sertraline [Zoloft] Med 10/11/20 21:00 Active 50 mg PO BEDTIME Simvastatin [Zocor] Med 10/11/20 21:00 Active 20 mg PO BEDTIME Resuscitation Status Routine Resus Stat 10/11/20 13:42 Ordered Medication Orders Carbidopa/Levodopa (Carbidopa/Levodopa 25-100 Mg Tab) 2 tab PO TID [facility] Last Admin: 10/11/20 20:35 Dose: 2 tab Documented by: Admin: 10/11/20 14:22 Dose: 2 tab Documented by: SYLVIE Ciprofloxacin (Ciprofloxacin 500 Mg Tab) 500 mg PO BID [facility] Stop: 10/12/20 21:01 Last Admin: 10/11/20 20:34 Dose: 500 mg Documented by: ETHEL Fish Oil (Fish Oil/[place]-3 Fatty Acids 1 Gm Cap) 1 gm PO DAILY [facility] Last Admin: 10/11/20 16:21 Dose: 1 gm Documented by: SYLVIE Glucosamine Sulfate (Glucosamine 500 Mg Cap) 500 mg PO BID [facility] Last Admin: 10/11/20 20:35 Dose: 500 mg Documented by: Admin: 10/11/20 16:23 Dose: 500 mg Documented by: SYLVIE Lutein (Lutein 10 Mg Tab) 20 mg PO DAILY [facility] Last Admin: 10/11/20 16:22 Dose: 20 mg Documented by: SYLVIE Multivitamins/Minerals/Vitamin C (Multivitamin Tab) 1 tab PO DAILY [facility] Last Admin: 10/11/20 16:24 Dose: 1 tab Documented by: SYLVIE Pantoprazole Sodium (Pantoprazole 40 Mg Tab.Cr) 40 mg PO 0600 [facility] Propranolol HCl (Propranolol 20 Mg Tab) 20 mg PO BID [facility] Last Admin: 10/11/20 20:35 Dose: 20 mg Documented by: ETHEL Sertraline HCl (Sertraline 50 Mg Tab) 50 mg PO BEDTIME [facility] Last Admin: 10/11/20 20:35 Dose: 50 mg Documented by: ETHEL Simvastatin (Simvastatin 20 Mg Tab) 20 mg PO BEDTIME [facility] Last Admin: 10/11/20 20:35 Dose: 20 mg Documented by: ETHEL Assessment/Plan Comment:: Admit to [facility]. Obtain basic labs. Start PT and OT
[2020-10-12] MEDS: Pantoprazole 40 MG Tab.CR PO SCH (06:29)
[2020-10-12] MEDS: Fish Oil/Omega-3 Fatty Acids 1 Gm Cap PO SCH (08:29)
[2020-10-12] MEDS: Multivitamin Tab PO SCH (08:30)
[2020-10-12] MEDS: Carbidopa/Levodopa 25-100 MG Tab PO SCH ×3 (08:30→20:13)
[2020-10-12] MEDS: Propranolol 20 MG Tab PO SCH ×2 (08:30→20:13)
[2020-10-12] MEDS: Ciprofloxacin 500 MG Tab PO SCH ×2 (08:31→20:13)
[2020-10-12] MEDS: Glucosamine 500 MG Cap PO SCH ×2 (08:31→20:14)
[2020-10-12] MEDS: Simvastatin 20 MG Tab PO SCH (20:13)
[2020-10-12] MEDS: Sertraline 50 MG Tab PO SCH (20:14)
[2020-10-13] MEDS: Pantoprazole 40 MG Tab.CR PO SCH (05:44)
[2020-10-13] MEDS: Fish Oil/Omega-3 Fatty Acids 1 Gm Cap PO SCH (09:03)
[2020-10-13] MEDS: Glucosamine 500 MG Cap PO SCH ×2 (09:03→20:01)
[2020-10-13] MEDS: Propranolol 20 MG Tab PO SCH ×2 (09:03→20:00)
[2020-10-13] MEDS: Carbidopa/Levodopa 25-100 MG Tab PO SCH ×3 (09:03→20:00)
[2020-10-13] MEDS: Multivitamin Tab PO SCH (09:04)
--- NOTE | 2020-10-13 13:09 | PCM.DCSUM1 ---
Discharge Summary - Hospital Course Free Text/Narrative:: Admitted on October 03 for lap converted to open cholecystectomy Brief History: Had several week hx of abdominal epigastric pain and weight loss with evidence of Cholecystitis/Cholelithiasis onCT scan. - Discharge Data Discharge Date: 10/11/20 Discharge Disposition: Home, Self-Care 01 Condition: Good - Referral to Home Health Primary Care Physician: PCP Unknown - Patient Summary/Data Operative Procedure(s) Performed: Lap converted to open cholecystectomy on 10/04/20 Complications: none Consults: Consultations 10/11/20 13:42 OT Evaluation and Treatment [CONS] Routine Please Evaluate and Treat. OT Reason for Consult: ADL's This query below is only for informational purposes and is not editable. PT Evaluation and Treatment [CONS] Routine Please Evaluate and Treat. PT Reason for Consult: Ambulation This query below is only for informational purposes and is not editable. Hospital Course: Post op was uneventful. Cultures showed E coli treated with IV Zosyn initially and changed to Cipro on POD #4. NEHAL drain was pulled on POD #4. Bowel function returned after 2 days and is tolerating diet well. Still is weak and would benefit for swingbed. - Patient Instructions Diet: Usual Diet as Tolerated Activity: No Strenuous Activities (for 4 weeks) Showering/Bathing: May Shower Wound/Incision Care: Keep Operative Site/Wound Site Clean and Dry - Discharge Plan Home Medications: Home Meds Carbidopa/Levodopa [Carbidopa-Levodopa 25-100] 2 tab PO TID 08/31/20 [History] Propranolol [Inderal] 20 mg PO BID 08/31/20 [History] Simvastatin 20 mg PO BEDTIME 08/31/20 [History] Aspirin 81 mg PO DAILY 10/04/20 [History] Carboxymethyl/Glycerin/Poly80 [Refresh Optive Advanced Drops] 1 drop EYEBOTH TID 10/04/20 [History] Glucosamine [Glucosamine Sulfate] 1 cap PO BID 10/04/20 [History] Hypromellose [Genteal Mild] 1 drop OP ASDIRECTED 10/04/20 [History] Lutein Extract/Zeaxanthin Ext [Lutein 15 MG Softgel] 20 mg PO DAILY 10/04/20 [History] Multivitamin Combination No.56 [Clem-Life Multivitamin] 1 each PO DAILY 10/04/20 [History] [place]-3/DHA/Epa/Fish Oil [[place] 3 500 Softgel] 1 each PO DAILY 10/04/20 [History] Omeprazole 20 mg PO DAILY 10/04/20 [History] Sertraline HCl [Zoloft] 50 mg PO BEDTIME 10/04/20 [History] Referrals: Kannan Sherman MD [Physician] - (f/u October 19 for staple removal) - Discharge Summary/Plan Comment DC Time >30 min.: No - Patient Data Vitals - Most Recent: Last Vital Signs Temp 97.8 F 10/13/20 02:52 Pulse 67 10/13/20 02:52 Resp 16 10/13/20 02:52 BP 110/64 10/13/20 02:52 Pulse Ox 96 10/13/20 02:52 Weight - Most Recent: 70.171 kg Med Orders - Current: Current Medications Carbidopa/Levodopa (Carbidopa/Levodopa 25-100 Mg Tab) 2 tab PO TID [facility] Last Admin: 10/13/20 09:03 Dose: 2 tab Documented by: Fish Oil (Fish Oil/[place]-3 Fatty Acids 1 Gm Cap) 1 gm PO DAILY [facility] Last Admin: 10/13/20 09:03 Dose: 1 gm Documented by: Glucosamine Sulfate (Glucosamine 500 Mg Cap) 500 mg PO BID [facility] Last Admin: 10/13/20 09:03 Dose: 500 mg Documented by: Lutein (Lutein 10 Mg Tab) 20 mg PO DAILY [facility] Last Admin: 10/13/20 09:03 Dose: 20 mg Documented by: Multivitamins/Minerals/Vitamin C (Multivitamin Tab) 1 tab PO DAILY [facility] Last Admin: 10/13/20 09:04 Dose: 1 tab Documented by: Pantoprazole Sodium (Pantoprazole 40 Mg Tab.Cr) 40 mg PO 0600 [facility] Last Admin: 10/13/20 05:44 Dose: 40 mg Documented by: Propranolol HCl (Propranolol 20 Mg Tab) 20 mg PO BID [facility] Last Admin: 10/13/20 09:03 Dose: 20 mg Documented by: Sertraline HCl (Sertraline 50 Mg Tab) 50 mg PO BEDTIME [facility] Last Admin: 10/12/20 20:14 Dose: 50 mg Documented by: Simvastatin (Simvastatin 20 Mg Tab) 20 mg PO BEDTIME [facility] Last Admin: 10/12/20 20:13 Dose: 20 mg Documented by: Discontinued Medications Ciprofloxacin (Ciprofloxacin 500 Mg Tab) 500 mg PO BID [facility] Stop: 10/12/20 21:01 Last Admin: 10/12/20 20:13 Dose: 500 mg Documented by:
[2020-10-13] MEDS: Sertraline 50 MG Tab PO SCH (20:01)
[2020-10-13] MEDS: Simvastatin 20 MG Tab PO SCH (20:01)
[2020-10-14] MEDS: Pantoprazole 40 MG Tab.CR PO SCH (06:04)
[2020-10-14] MEDS: Multivitamin Tab PO SCH (08:50)
[2020-10-14] MEDS: Carbidopa/Levodopa 25-100 MG Tab PO SCH ×4 (08:51→20:11)
[2020-10-14] MEDS: Fish Oil/Omega-3 Fatty Acids 1 Gm Cap PO SCH (08:51)
[2020-10-14] MEDS: Glucosamine 500 MG Cap PO SCH ×3 (08:51→20:11)
[2020-10-14] MEDS: Propranolol 20 MG Tab PO SCH ×3 (08:52→20:11)
--- NOTE | 2020-10-14 09:44 | PCM.PN ---
- General Info Date of Service: 10/14/20 Subjective Update: When he was admitted to [facility] bed for rehabilitation. He had open cholecystectomy. He needed 2 units of blood. Today, all of a sudden, he is confused complains of headache, and is very anxious. Functional Status: Reports: Pain Controlled - Review of Systems General: Reports: No Symptoms, Weakness HEENT: Reports: No Symptoms Pulmonary: Reports: No Symptoms Neurological: Reports: Confusion, Headache - Patient Data Vitals - Most Recent: Last Vital Signs Temp 97.8 F 10/13/20 02:52 Pulse 67 10/13/20 02:52 Resp 16 10/13/20 02:52 BP 110/64 10/13/20 02:52 Pulse Ox 96 10/13/20 02:52 Weight - Most Recent: 70.171 kg Med Orders - Current: Current Medications Carbidopa/Levodopa (Carbidopa/Levodopa 25-100 Mg Tab) 2 tab PO TID [facility] Last Admin: 10/14/20 08:51 Dose: 2 tab Documented by: Fish Oil (Fish Oil/[place]-3 Fatty Acids 1 Gm Cap) 1 gm PO DAILY [facility] Last Admin: 10/14/20 08:51 Dose: 1 gm Documented by: Glucosamine Sulfate (Glucosamine 500 Mg Cap) 500 mg PO BID [facility] Last Admin: 10/14/20 08:51 Dose: 500 mg Documented by: Lutein (Lutein 10 Mg Tab) 20 mg PO DAILY [facility] Last Admin: 10/14/20 08:50 Dose: 20 mg Documented by: Multivitamins/Minerals/Vitamin C (Multivitamin Tab) 1 tab PO DAILY [facility] Last Admin: 10/14/20 08:50 Dose: 1 tab Documented by: Pantoprazole Sodium (Pantoprazole 40 Mg Tab.Cr) 40 mg PO 0600 [facility] Last Admin: 10/14/20 06:04 Dose: 40 mg Documented by: Propranolol HCl (Propranolol 20 Mg Tab) 20 mg PO BID [facility] Last Admin: 10/14/20 08:52 Dose: 20 mg Documented by: Sertraline HCl (Sertraline 50 Mg Tab) 50 mg PO BEDTIME [facility] Last Admin: 10/13/20 20:01 Dose: 50 mg Documented by: Simvastatin (Simvastatin 20 Mg Tab) 20 mg PO BEDTIME [facility] Last Admin: 10/13/20 20:01 Dose: 20 mg Documented by: Discontinued Medications Ciprofloxacin (Ciprofloxacin 500 Mg Tab) 500 mg PO BID [facility] Stop: 10/12/20 21:01 Last Admin: 10/12/20 20:13 Dose: 500 mg Documented by: - Exam General: Alert. No: Oriented HEENT: Pupils Equal Neck: Supple Lungs: Clear to Auscultation, Crackles Cardiovascular: Regular Rate Neurological: No New Focal Deficit Psy/Mental Status: Alert, Anxious - Patient Data Result Diagrams: 10/12/20 06:05 10/12/20 06:05 Sepsis Event Note - Evaluation Sepsis Screening Result: No Definite Risk - Problem List & Annotations (1) S/P cholecystectomy SNOMED Code(s): 025952718, 41939621, 556103599 Code(s): Z90.49 - ACQUIRED ABSENCE OF OTHER SPECIFIED PARTS OF DIGESTIVE TRACT Status: Acute Current Visit: Yes (2) Parkinson disease SNOMED Code(s): 66714242 Code(s): G20 - PARKINSON'S DISEASE Status: Acute Current Visit: Yes (3) Weakness SNOMED Code(s): 49758359 Code(s): R53.1 - WEAKNESS Status: Acute Current Visit: Yes (4) Atypical chest pain SNOMED Code(s): 996721075 Code(s): R07.89 - OTHER CHEST PAIN Status: Acute Current Visit: No (5) GERD (gastroesophageal reflux disease) SNOMED Code(s): 745366391 Code(s): K21.9 - GASTRO-ESOPHAGEAL REFLUX DISEASE WITHOUT ESOPHAGITIS Status: Acute Current Visit: No (6) SOB (shortness of breath) SNOMED Code(s): 236337015 Code(s): R06.02 - SHORTNESS OF BREATH Status: Acute Current Visit: Yes (7) Delirious SNOMED Code(s): 210316126 Code(s): R41.0 - DISORIENTATION, UNSPECIFIED Status: Acute Current Visit: Yes - Problem List Review Problem List Initiated/Reviewed/Updated: Yes - My Orders Last 24 Hours: My Active Orders 10/14/20 09:40 Head wo Cont [CT] Routine CBC WITH AUTO DIFF [HEME] Stat COMPREHENSIVE METABOLIC PN,CMP [CHEM] Stat UA W/MICROSCOPIC [URIN] Routine - Plan Plan:: Obtain a CT of the head, basic labs. Control pain with Tylenol.
[2020-10-14] MEDS: Acetaminophen 325 MG Tab PO PRN ×2 (10:08→16:45)
--- NOTE | 2020-10-14 15:20 | CT ---
INDICATION: Confusion. CT HEAD WITHOUT CONTRAST: Spiral 3.75 mm axial sections were obtained through the brain without contrast with axial, sagittal and coronal reconstructions 10/14/20 - no comparisons Total exam DLP was 1322.30 mGy-cm. The paranasal sinuses and mastoid air cells are well aerated. No cranial abnormality was identified. The orbits appear to be intact. Calcifications are noted in the internal carotid arteries. No shift of midline structures was noted. The ventricles are mildly prominent compatible with the patient's age. No definite significant abnormal areas of density were identified except to note some minimal patchy decreased density in the white matter in the frontoparietal area suggesting a mild degree of microvascular disease. There appears to be severe cortical atrophy with bilateral subdural hygromas frontoparietal for the most part in location. No findings to suggest a bleeding site or hematoma was identified. IMPRESSION: 1. Severe cortical atrophy. 2. Minimal central atrophy compatible with patient's age. 3. 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 Report was called to Dr. Guerra at approximately 1346 hours, 10/14/20. [facility]
[2020-10-14] MEDS: Sertraline 50 MG Tab PO SCH ×2 (19:55→20:11)
[2020-10-14] MEDS: Simvastatin 20 MG Tab PO SCH ×2 (19:55→20:11)
[2020-10-15] MEDS: Pantoprazole 40 MG Tab.CR PO SCH (06:23)
[2020-10-15] MEDS: Propranolol 20 MG Tab PO SCH (08:37)
[2020-10-15] MEDS: Multivitamin Tab PO SCH (08:37)
[2020-10-15] MEDS: Carbidopa/Levodopa 25-100 MG Tab PO SCH (08:37)
[2020-10-15] MEDS: Fish Oil/Omega-3 Fatty Acids 1 Gm Cap PO SCH (08:37)
[2020-10-15] MEDS: Glucosamine 500 MG Cap PO SCH (08:37)
--- NOTE | 2020-10-15 10:15 | PCM.DCSUM1 ---
Discharge Summary - Hospital Course HPI Initial Comments: Sachin was admitted to [facility] 10/11 after open cholecystectomy on October 04. He received 2 units PRBCs post op. He has weakness and needs PT and OT. He has a h/o Parkinson's Disease, Fatigue, and MEÑO. Lives alone in [place]. Diagnosis: Stroke: No - Discharge Data Discharge Date: 10/15/20 ([facility]) Discharge Disposition: Home, W Home Health Agency 06 Condition: Good - Referral to [facility] Date of Face to Face Encounter: 10/15/20 Reason for Homebound Status: Weakness, Parkinson's, s/p open [place] 10/04/20 Primary Care Physician: PCP Unknown Skilled Need: SN, PT, OT - Patient Summary/Data Consults: Consultations 10/11/20 13:42 OT Evaluation and Treatment [CONS] Routine Please Evaluate and Treat. OT Reason for Consult: ADL's This query below is only for informational purposes and is not editable. PT Evaluation and Treatment [CONS] Routine Please Evaluate and Treat. PT Reason for Consult: Ambulation This query below is only for informational purposes and is not editable. Hospital Course: Georges has improved with PT, OT in regards to weakness post-operatively. He had lap cholecystectomy on 10/04 converted to open, was admitted to swing bed on 10/11. He had acute confusion yesterday, CT head was negative for acute changes, marked cortical atrophy noted. UA was negative. Labs unremarkable. Confusion resolved on its own. Back at baseline today, [facility] with [facility] sister. - Patient Instructions Diet: Usual Diet as Tolerated Activity: As Tolerated Driving: Do Not Drive Showering/Bathing: May Shower Notify Provider of: Fever, Increased Pain, Nausea and/or Vomiting - Discharge Plan *PRESCRIPTION DRUG MONITORING PROGRAM REVIEWED*: Not Applicable *COPY OF PRESCRIPTION DRUG MONITORING REPORT IN PATIENT ISHMAEL: Not Applicable Home Medications: Home Meds Carbidopa/Levodopa [Carbidopa-Levodopa 25-100] 2 tab PO TID 08/31/20 [History] Propranolol [Inderal] 20 mg PO BID 08/31/20 [History] Simvastatin 20 mg PO BEDTIME 08/31/20 [History] Aspirin 81 mg PO DAILY 10/04/20 [History] Carboxymethyl/Glycerin/Poly80 [Refresh Optive Advanced Drops] 1 drop EYEBOTH TID 10/04/20 [History] Glucosamine [Glucosamine Sulfate] 1 cap PO BID 10/04/20 [History] Hypromellose [Genteal Mild] 1 drop OP ASDIRECTED 10/04/20 [History] Lutein Extract/Zeaxanthin Ext [Lutein 15 MG Softgel] 20 mg PO DAILY 10/04/20 [History] Multivitamin Combination No.56 [Clem-Life Multivitamin] 1 each PO DAILY 10/04/20 [History] [place]-3/DHA/Epa/Fish Oil [[place] 3 500 Softgel] 1 each PO DAILY 10/04/20 [History] Omeprazole 20 mg PO DAILY 10/04/20 [History] Sertraline HCl [Zoloft] 50 mg PO BEDTIME 10/04/20 [History] Acetaminophen [Tylenol] 650 mg PO Q6H PRN tablet 10/15/20 [Rx] Oxygen Therapy Mode: Room Air Referrals: Kannan Sherman MD [Physician] - (f/u October 19 for staple removal) - Discharge Summary/Plan Comment DC Time >30 min.: No - General Info Date of Service: 10/15/20 Subjective Update: Georges states that he feels better today, not confused like yesterday. Feels he is back to his usual self. Denies any pain, urinating and having bowel movements. No complaints. Functional Status: Reports: Pain Controlled, Tolerating Diet, Ambulating, Urinating - Patient Data Vitals - Most Recent: Last Vital Signs Temp 98.5 F 10/14/20 07:25 Pulse 65 10/14/20 07:25 Resp 22 H 10/14/20 07:25 BP 132/77 10/14/20 07:25 Pulse Ox 97 10/14/20 07:25 Weight - Most Recent: 154 lb 11.2 oz Lab Results - Last 24 hrs: Laboratory Results - last 24 hr 10/14/20 10/14/20 10/14/20 Range/Units 09:55 09:55 12:00 WBC 6.6 (3.2-10.1) x10-3/uL RBC 4.03 (3.90-5.90) x10(6)uL Hgb 12.5 L (12.9-17.7) g/dL Hct 36.1 L (38.3-50.1) % MCV 89.5 (80.8-98.7) fL MCH 31.0 (27.0-33.3) pg MCHC 34.7 (28.7-35.3) g/dL RDW 13.8 (12.4-15.0) % Plt Count 302 (117-477) x10(3)uL MPV 7.6 (6.7-11.0) fL Neut % (Auto) 64.5 (40.3-71.8) % Lymph % (Auto) 20.8 (15.8-45.3) % [place] % (Auto) 10.0 (5.5-15.2) % Eos % (Auto) 3.9 (0.1-6.8) % Baso % (Auto) 0.8 (0.3-3.8) % Neut # (Auto) 4.2 (1.7-6.9) x10-3/uL Lymph # (Auto) 1.4 (0.5-4.5) x10-3/uL [place] # (Auto) 0.7 (0.0-1.2) x10-3/uL Eos # (Auto) 0.3 (0.0-0.6) x10-3/uL Baso # (Auto) 0.1 (0.0-0.3) x10-3/uL Sodium 137 (135-145) mmol/L Potassium 4.0 (3.5-5.3) mmol/L Chloride 100 (100-110) mmol/L Carbon Dioxide 27 (21-32) mmol/L BUN 20 H (7-18) mg/dL Creatinine 0.9 (0.70-1.30) mg/dL Est Cr Clr Drug Dosing 52.69 mL/min Estimated GFR (MDRD) > 60 (>60) BUN/Creatinine Ratio 22.2 H (9-20) Glucose 134 H (80-116) mg/dL Calcium 8.5 L (8.6-10.2) mg/dL Total Bilirubin 0.7 (0.1-1.3) mg/dL AST 37 H D (5-25) IU/L ALT 25 D (12-36) U/L Alkaline Phosphatase 70 (56-112) IU/L Total Protein 6.3 (6.0-8.0) g/dL Albumin 2.8 L (3.2-4.6) g/dL Globulin 3.5 g/dL Albumin/Globulin Ratio 0.8 Urine Color Yellow (YELLOW) Urine Appearance Clear (CLEAR) Urine pH 6.5 (5.0-6.5) Ur Specific [place] 1.010 (1.010-1.025) Urine Protein Negative (NEGATIVE) mg/dL Urine Glucose (UA) Normal (NORMAL) mg/dL Urine Ketones Negative (NEGATIVE) mg/dL Urine Occult Blood Negative (NEGATIVE) Urine Nitrite Negative (NEGATIVE) Urine Bilirubin Negative (NEGATIVE) Urine Urobilinogen Normal (NEGATIVE) mg/dL Ur Leukocyte Esterase Negative (NEGATIVE) Urine WBC 0-5 (0-5) Ur Squamous Epith Cells Occasional (NS,R,O) Urine Bacteria Few H (NS) Med Orders - Current: Current Medications Acetaminophen (Acetaminophen 325 Mg Tab) 650 mg PO Q6H PRN PRN Reason: Breakthrough Pain Last Admin: 10/14/20 16:45 Dose: 650 mg Documented by: Carbidopa/Levodopa (Carbidopa/Levodopa 25-100 Mg Tab) 2 tab PO TID [facility] Last Admin: 10/15/20 08:37 Dose: 2 tab Documented by: Fish Oil (Fish Oil/[place]-3 Fatty Acids 1 Gm Cap) 1 gm PO DAILY [facility] Last Admin: 10/15/20 08:37 Dose: 1 gm Documented by: Glucosamine Sulfate (Glucosamine 500 Mg Cap) 500 mg PO BID [facility] Last Admin: 10/15/20 08:37 Dose: 500 mg Documented by: Lutein (Lutein 10 Mg Tab) 20 mg PO DAILY [facility] Last Admin: 10/15/20 08:37 Dose: 20 mg Documented by: Multivitamins/Minerals/Vitamin C (Multivitamin Tab) 1 tab PO DAILY [facility] Last Admin: 10/15/20 08:37 Dose: 1 tab Documented by: Pantoprazole Sodium (Pantoprazole 40 Mg Tab.Cr) 40 mg PO 0600 [facility] Last Admin: 10/15/20 06:23 Dose: 40 mg Documented by: Propranolol HCl (Propranolol 20 Mg Tab) 20 mg PO BID [facility] Last Admin: 10/15/20 08:37 Dose: 20 mg Documented by: Sertraline HCl (Sertraline 50 Mg Tab) 50 mg PO BEDTIME [facility] Last Admin: 10/14/20 20:11 Dose: Not Given Documented by: Simvastatin (Simvastatin 20 Mg Tab) 20 mg PO BEDTIME [facility] Last Admin: 10/14/20 20:11 Dose: Not Given Documented by: Discontinued Medications Ciprofloxacin (Ciprofloxacin 500 Mg Tab) 500 mg PO BID [facility] Stop: 10/12/20 21:01 Last Admin: 10/12/20 20:13 Dose: 500 mg Documented by: - Exam General: Reports: Alert, Oriented (person, time), Cooperative, No Acute Distress Lungs: Reports: Clear to Auscultation, Normal Respiratory Effort Cardiovascular: Reports: Regular Rate, Regular Rhythm GI/Abdominal Exam: Normal Bowel Sounds, Soft, Non-Tender, No Distention Extremities: No Pedal Edema Wound/Incisions: Reports: No Drainage
== END 2020-10-15 11:20 | disposition home health service (06) | DRG 948 ==
LOC: FB.MS 13:01
PROVIDERS: ADMIT Family Medicine; ATTEND Family Medicine
DX: R53.1 Weakness (principal); H54.7 Unspecified visual loss; K21.9 Gastro-esophageal reflux disease without esophagitis; G20 Parkinson's disease; R07.89 Other chest pain; E78.5 Hyperlipidemia, unspecified; Z98.890 Other specified postprocedural states; Z90.49 Acquired absence of other specified parts of digestive tract; Z79.82 Long term (current) use of aspirin; Z79.899 Other long term (current) drug therapy; R41.0 Disorientation, unspecified
CPT/HCPCS: 36415; 70450; 80048; 80053; 81001; 83880; 85025; 97110-GO; 97112-GP; 97530-GO; 97530-GP; 97535-GO; A9270-GY

== ENCOUNTER 2022-10-04 12:22 | Inpatient (IN) | payer MEDICARE, BC ==
[2022-10-04] MEDS ORDERED: Sodium Chloride 0.9% 10 ML Syringe FLUSH PRN (12:41)
[2022-10-04 13:10] LABS: ESTIMATED GFR 92 mL/min (>60)
[2022-10-04] MEDS ORDERED: Ondansetron 4 MG/2 ML SDV IVPUSH ONE (13:10)
[2022-10-04] MEDS ORDERED: Sodium Chloride 0.9% 500 ML IV ONE (13:10)
[2022-10-04 13:42] LABS: CORONAVIRUS COVID-19 NAA NEGATIVE (NEGATIVE)
[2022-10-04] MEDS ORDERED: Acetaminophen 325 MG Tab PO PRN (20:00)
[2022-10-04] MEDS ORDERED: Ondansetron 4 MG/2 ML SDV IV PRN (20:00)
[2022-10-04] MEDS ORDERED: Meclizine 25 MG Tab PO PRN (20:06)
[2022-10-04] MEDS ORDERED: Simvastatin 40 MG Tab *PT OWN MED PO SCH (21:00)
[2022-10-04] MEDS: CARBIDOPA PO SCH (21:12)
[2022-10-04] MEDS: LEVODOPA PO SCH (21:12)
[2022-10-04] MEDS: Sodium Chloride 0.9% 1,000 ML IV SCH (21:15)
[2022-10-05] MEDS: Sodium Chloride 0.9% 1,000 ML IV SCH ×2 (05:12→13:43)
[2022-10-05] MEDS ORDERED: Pantoprazole 20 MG Tab, Delayed Release PO SCH (06:00)
[2022-10-05] MEDS: LEVODOPA PO SCH (06:36)
[2022-10-05] MEDS: CARBIDOPA PO SCH (06:36)
[2022-10-05] MEDS ORDERED: OMEPRAZOLE 20 MG PO SCH (07:00)
[2022-10-05] MEDS ORDERED: PROPRANOLOL 20 MG PO SCH (07:00)
[2022-10-05 07:02] LABS: ESTIMATED GFR 88 mL/min (>60)
[2022-10-05] MEDS: Carboxymethylcellulose Sodium 0.5% Ophth Soln 15 ML Bottle EYEBOTH SCH ×3 (10:42→20:06)
[2022-10-05] MEDS: Carbidopa/Levodopa 25-100 MG Tab PO SCH ×2 (12:12→20:08)
[2022-10-05] MEDS: Glucosamine 500 MG Cap PO SCH (20:07)
[2022-10-05] MEDS: Simvastatin 20 MG Tab PO SCH (20:08)
[2022-10-05] MEDS: Sertraline 50 MG Tab PO SCH (20:10)
[2022-10-06 06:44] LABS: ESTIMATED GFR 88 mL/min (>60)
[2022-10-06] MEDS: Carbidopa/Levodopa 25-100 MG Tab PO SCH ×3 (06:56→20:51)
[2022-10-06] MEDS: Pantoprazole 40 MG Tab.CR PO SCH (06:56)
[2022-10-06] MEDS ORDERED: Propranolol 20 MG Tab PO SCH (07:00)
[2022-10-06] MEDS ORDERED: HYPROMELLOSE OP SCH (09:00)
[2022-10-06] MEDS: Carboxymethylcellulose Sodium 0.5% Ophth Soln 15 ML Bottle EYEBOTH SCH ×3 (09:02→20:50)
[2022-10-06] MEDS: Glucosamine 500 MG Cap PO SCH ×2 (09:03→20:51)
[2022-10-06] MEDS: Aspirin 81 MG Tab.EC PO SCH (09:03)
[2022-10-06] MEDS: Fish Oil/Omega-3 Fatty Acids 1 Gm Cap PO SCH (09:03)
[2022-10-06] MEDS: Multivitamins with Iron/Calcium/Folic Acid/Minerals Tab PO SCH (09:03)
[2022-10-06] MEDS: Enoxaparin 40 MG/0.4 ML Syringe SUBCUT SCH (14:46)
[2022-10-06] MEDS: Sertraline 50 MG Tab PO SCH (20:51)
[2022-10-06] MEDS: Simvastatin 20 MG Tab PO SCH (20:55)
[2022-10-07] MEDS: Pantoprazole 40 MG Tab.CR PO SCH (06:27)
[2022-10-07] MEDS: Carbidopa/Levodopa 25-100 MG Tab PO SCH ×3 (06:27→20:36)
[2022-10-07] MEDS: Glucosamine 500 MG Cap PO SCH ×2 (08:24→20:35)
[2022-10-07] MEDS: Aspirin 81 MG Tab.EC PO SCH (08:24)
[2022-10-07] MEDS: Multivitamins with Iron/Calcium/Folic Acid/Minerals Tab PO SCH (08:25)
[2022-10-07] MEDS: Carboxymethylcellulose Sodium 0.5% Ophth Soln 15 ML Bottle EYEBOTH SCH ×3 (08:25→20:34)
[2022-10-07] MEDS: Fish Oil/Omega-3 Fatty Acids 1 Gm Cap PO SCH (08:26)
[2022-10-07] MEDS: Enoxaparin 40 MG/0.4 ML Syringe SUBCUT SCH (13:56)
[2022-10-07] MEDS: Simvastatin 20 MG Tab PO SCH (20:34)
[2022-10-07] MEDS: Sertraline 50 MG Tab PO SCH (20:36)
[2022-10-08] MEDS: Pantoprazole 40 MG Tab.CR PO SCH (06:36)
[2022-10-08] MEDS: Carbidopa/Levodopa 25-100 MG Tab PO SCH ×3 (06:36→20:00)
[2022-10-08] MEDS: Fish Oil/Omega-3 Fatty Acids 1 Gm Cap PO SCH (08:47)
[2022-10-08] MEDS: Aspirin 81 MG Tab.EC PO SCH (08:47)
[2022-10-08] MEDS: Multivitamins with Iron/Calcium/Folic Acid/Minerals Tab PO SCH (08:47)
[2022-10-08] MEDS: Glucosamine 500 MG Cap PO SCH ×2 (08:48→20:00)
[2022-10-08] MEDS: Carboxymethylcellulose Sodium 0.5% Ophth Soln 15 ML Bottle EYEBOTH SCH ×3 (08:48→20:00)
[2022-10-08] MEDS: Enoxaparin 40 MG/0.4 ML Syringe SUBCUT SCH (14:38)
[2022-10-08] MEDS: Sertraline 50 MG Tab PO SCH (20:00)
[2022-10-08] MEDS: Simvastatin 20 MG Tab PO SCH (20:00)
[2022-10-09] MEDS: Pantoprazole 40 MG Tab.CR PO SCH (06:01)
[2022-10-09] MEDS: Carbidopa/Levodopa 25-100 MG Tab PO SCH ×3 (06:02→20:16)
[2022-10-09] MEDS: Carboxymethylcellulose Sodium 0.5% Ophth Soln 15 ML Bottle EYEBOTH SCH ×3 (08:15→20:17)
[2022-10-09] MEDS: Glucosamine 500 MG Cap PO SCH ×2 (08:16→20:18)
[2022-10-09] MEDS: Aspirin 81 MG Tab.EC PO SCH (08:16)
[2022-10-09] MEDS: Multivitamins with Iron/Calcium/Folic Acid/Minerals Tab PO SCH (08:16)
[2022-10-09] MEDS: Fish Oil/Omega-3 Fatty Acids 1 Gm Cap PO SCH (08:16)
[2022-10-09] MEDS: Enoxaparin 40 MG/0.4 ML Syringe SUBCUT SCH (14:33)
[2022-10-09] MEDS ORDERED: Carbidopa/Levodopa 25-100 MG Tab PO SCH (17:00)
[2022-10-09] MEDS: Sertraline 50 MG Tab PO SCH (20:17)
[2022-10-09] MEDS: Simvastatin 20 MG Tab PO SCH (20:17)
[2022-10-10] MEDS: Carbidopa/Levodopa 25-100 MG Tab PO SCH ×2 (06:28→11:39)
[2022-10-10] MEDS: Pantoprazole 40 MG Tab.CR PO SCH (06:28)
[2022-10-10] MEDS: Aspirin 81 MG Tab.EC PO SCH (08:45)
[2022-10-10] MEDS: Fish Oil/Omega-3 Fatty Acids 1 Gm Cap PO SCH (08:45)
[2022-10-10] MEDS: Multivitamins with Iron/Calcium/Folic Acid/Minerals Tab PO SCH (08:45)
[2022-10-10] MEDS: Glucosamine 500 MG Cap PO SCH (08:45)
[2022-10-10] MEDS: Carboxymethylcellulose Sodium 0.5% Ophth Soln 15 ML Bottle EYEBOTH SCH ×2 (08:46→13:27)
[2022-10-10] MEDS ORDERED: Polyethylene Glycol 3350 Powder 17 GM Packet PO SCH (09:00)
== END 2022-10-10 13:40 | disposition home health service (06) | DRG 149 ==
LOC: FB.ED 12:22 → FB.MS 17:53 → OBSVTOIN 10-05 09:30
PROVIDERS: ADMIT Family Medicine; ATTEND Family Medicine
DX: R42 Dizziness and giddiness (principal); E86.0 Dehydration; R26.81 Unsteadiness on feet; Z20.822 Contact with and (suspected) exposure to COVID-19; E78.5 Hyperlipidemia, unspecified; G20 Parkinson's disease; R26.2 Difficulty in walking, not elsewhere classified; Z66 Do not resuscitate; I95.1 Orthostatic hypotension; K21.9 Gastro-esophageal reflux disease without esophagitis; T50.995A Adverse effect of other drugs, medicaments and biological substances, initial encounter; F32.9 Major depressive disorder, single episode, unspecified; K59.00 Constipation, unspecified; Z79.82 Long term (current) use of aspirin; Z79.899 Other long term (current) drug therapy; Z90.49 Acquired absence of other specified parts of digestive tract; Z98.890 Other specified postprocedural states
CPT/HCPCS: 0240U; 36415; 70450; 70551; 80048; 80053; 81001; 83735; 84484; 85025; 86140; 93005; 93010; 97112-GP; 97116-GP; 97161-GP; 97165-GO; 97530-GO; 97535-GO; 99222; 99232; 99238; 99284; A9270-GY; J1650; J2405; J7030; J7040

== ENCOUNTER 2023-07-23 21:11 | Inpatient (IN) | payer MEDICARE, BC ==
[2023-07-23] MEDS ORDERED: Sodium Chloride 0.9% 500 ML IV ONE (21:48)
[2023-07-23 21:55] LABS: BASOPHILS PERCENT AUTO 0.9 % (0.3-3.8); EOSINOPHILS ABSOLUTE AUTO 0.2 x10-3/uL (0.0-0.6); EOSINOPHILS PERCENT AUTO 3.6 % (0.1-6.8); HEMATOCRIT 38.7 % (38.3-50.1); HEMOGLOBIN 13.6 g/dL (12.9-17.7); LYMPHOCYTES PERCENT AUTO 36.2 % (15.8-45.3); MEAN CORPUSCULAR HEMOGLOBIN 31.9 pg (27.0-33.3); MEAN CORPUSCULAR HGB CONC 35.1 g/dL (28.7-35.3); MEAN CORPUSCULAR VOLUME 90.9 fL (80.8-98.7); MEAN PLATELET VOLUME 7.5 fL (6.7-11.0); MONOCYTES ABSOLUTE AUTO 0.7 x10-3/uL (0.0-1.2); MONOCYTES PERCENT AUTO 12.7 % (5.5-15.2); NEUTROPHILS ABSOLUTE AUTO 2.6 x10-3/uL (1.7-6.9); NEUTROPHILS PERCENT AUTO 46.6 % (40.3-71.8); PLATELET COUNT,PLT 262 x10(3)uL (117-477); RED BLOOD CELL COUNT 4.25 x10(6)uL (3.90-5.90); RED CELL DISTRIBUTION WIDTH 13.3 % (12.4-15.0); WHITE BLOOD CELL COUNT,WBC 5.5 x10-3/uL (3.2-10.1)
[2023-07-23 22:01] LABS: BLOOD UREA NITROGEN,BUN 22 mg/dL (7-18); BUN/CREATININE RATIO 24.4 (9-20); CALCIUM 9.2 mg/dL (8.6-10.2); CARBON DIOXIDE,CO2 25 mmol/L (21-32); CHLORIDE,CL 96 mmol/L (100-110); CREATININE 0.9 mg/dL (0.70-1.30); EST CRCL DRUG DOSING (CG) 44.75 mL/min; ESTIMATED GFR 85 mL/min (>60); GLUCOSE RANDOM 131 mg/dL (80-116); POTASSIUM,K 3.5 mmol/L (3.5-5.3); SODIUM,NA 129 mmol/L (135-145)
[2023-07-23 22:06] LABS: A/G RATIO 1.1; ALANINE AMINOTRANSFERASE,ALT 8 U/L (12-36); ALBUMIN 3.4 g/dL (3.2-4.6); ALKALINE PHOSPHATASE 64 IU/L (56-112); ASPARTATE AMNIOTRANSFERASE,AST 19 IU/L (5-25); BILIRUBIN TOTAL 0.8 mg/dL (0.1-1.3); MAGNESIUM 1.8 mg/dL (1.8-2.5); PROTEIN TOTAL,TP 6.6 g/dL (6.0-8.0)
[2023-07-23 22:08] LABS: TROPONIN I 8.7 pg/mL (4.0-60.3)
[2023-07-23 22:11] LABS: C-REACTIVE PROTEIN < 0.50 mg/dL (<0.50)
[2023-07-23 23:04] LABS: APPEARANCE,URINE CLEAR (CLEAR); BACTERIA,URINE FEW (NS); BILIRUBIN,URINE NEGATIVE (NEGATIVE); COLOR,URINE YELLOW (YELLOW); GLUCOSE,URINE NORMAL (NORMAL); KETONES,URINE 15 mg/dL (NEGATIVE); LEUKOCYTE ESTERASE,URINE MODERATE (NEGATIVE); MUCUS,URINE OCCASIONAL (NS); NITRITE,URINE NEGATIVE (NEGATIVE); OCCULT BLOOD,URINE NEGATIVE (NEGATIVE); PROTEIN,URINE NEGATIVE (NEGATIVE); RBC,URINE 0-5 (0-5); SQUAMOUS EPITHELIAL CELLS,UR RARE (NS,R,O); UROBILINOGEN,URINE 4 mg/dL (NEGATIVE); WBC,URINE 0-5 (0-5)
[2023-07-24 00:03] LABS: INFLUENZA A NAA NEGATIVE (NEGATIVE); INFLUENZA B NAA NEGATIVE (NEGATIVE); RESPIRATORY SYNCYTIAL VIR NAA NEGATIVE (NEGATIVE)
[2023-07-24 00:07] LABS: CORONAVIRUS COVID-19 NAA NEGATIVE (NEGATIVE)
[2023-07-24 00:19] LABS: AMPHETAMINES SCREEN, URINE NEGATIVE (NEGATIVE); BARBITURATE SCREEN,URINE NEGATIVE (NEGATIVE); BENZODIAZEPINES SCREEN,URINE NEGATIVE (NEGATIVE); METHADONE SCREEN, URINE NEGATIVE (NEGATIVE); METHAMPHETAMINE SCREEN, URINE NEGATIVE (NEGATIVE); OXYCODONE SCREEN,URINE NEGATIVE (NEGATIVE); THC SCREEN,URINE NEGATIVE (NEGATIVE)
[2023-07-24 00:20] LABS: BUPRENORPHINE SCREEN,URINE NEGATIVE (NEGATIVE)
[2023-07-24] MEDS ORDERED: Ondansetron 4 MG/2 ML SDV IV PRN (00:28)
[2023-07-24] MEDS ORDERED: Acetaminophen 325 MG Tab PO PRN ×2 (00:28→09:03)
[2023-07-24] MEDS: Sodium Chloride 0.9% 1,000 ML IV SCH ×3 (01:00→23:01)
[2023-07-24] MEDS ORDERED: Carbidopa/Levodopa 25-100 MG Tab PO SCH ×2 (06:00→11:00)
[2023-07-24 06:35] LABS: BASOPHILS PERCENT AUTO 0.6 % (0.3-3.8); EOSINOPHILS ABSOLUTE AUTO 0.1 x10-3/uL (0.0-0.6); EOSINOPHILS PERCENT AUTO 1.1 % (0.1-6.8); HEMATOCRIT 38.8 % (38.3-50.1); HEMOGLOBIN 13.7 g/dL (12.9-17.7); LYMPHOCYTES ABSOLUTE AUTO 1.5 x10-3/uL (0.5-4.5); LYMPHOCYTES PERCENT AUTO 24.1 % (15.8-45.3); MEAN CORPUSCULAR HEMOGLOBIN 31.8 pg (27.0-33.3); MEAN CORPUSCULAR HGB CONC 35.3 g/dL (28.7-35.3); MEAN CORPUSCULAR VOLUME 90.2 fL (80.8-98.7); MEAN PLATELET VOLUME 7.1 fL (6.7-11.0); MONOCYTES ABSOLUTE AUTO 0.6 x10-3/uL (0.0-1.2); MONOCYTES PERCENT AUTO 9.1 % (5.5-15.2); NEUTROPHILS ABSOLUTE AUTO 4.1 x10-3/uL (1.7-6.9); NEUTROPHILS PERCENT AUTO 65.1 % (40.3-71.8); PLATELET COUNT,PLT 270 x10(3)uL (117-477); RED CELL DISTRIBUTION WIDTH 13.3 % (12.4-15.0); WHITE BLOOD CELL COUNT,WBC 6.3 x10-3/uL (3.2-10.1)
[2023-07-24 06:41] LABS: BLOOD UREA NITROGEN,BUN 16 mg/dL (7-18); CALCIUM 9.1 mg/dL (8.6-10.2); CARBON DIOXIDE,CO2 25 mmol/L (21-32); CHLORIDE,CL 100 mmol/L (100-110); CREATININE 0.8 mg/dL (0.70-1.30); EST CRCL DRUG DOSING (CG) 68.88 mL/min; ESTIMATED GFR 88 mL/min (>60); GLUCOSE RANDOM 108 mg/dL (80-116); POTASSIUM,K 3.8 mmol/L (3.5-5.3); SODIUM,NA 133 mmol/L (135-145)
[2023-07-24] MEDS: Pantoprazole 40 MG Tab.CR PO SCH (07:44)
[2023-07-24] MEDS: Carbidopa/Levodopa 25-100 MG Tab PO SCH ×4 (08:18→19:02)
[2023-07-24] MEDS ORDERED: Carboxymethylcellulose 0.5%/Glycerin 0.9% Ophth Soln 15 ML Bottle EYEBOTH PRN (09:44)
[2023-07-24] MEDS ORDERED: Hypromellose 0.3% Ophth Soln 15 ML Bottle EYEBOTH PRN (09:44)
[2023-07-24] MEDS: LORazepam 0.5 MG Tab PO PRN ×2 (09:53→20:33)
[2023-07-24] MEDS: Aspirin 81 MG Tab.EC PO SCH (09:54)
[2023-07-24] MEDS: Fish Oil/Omega-3 Fatty Acids 1 Gm Cap PO SCH (09:54)
[2023-07-24] MEDS: Glucosamine 500 MG Cap PO SCH (09:54)
[2023-07-24] MEDS: Multivitamins with Iron/Calcium/Folic Acid/Minerals Tab PO SCH (11:33)
[2023-07-24] MEDS: Simvastatin 20 MG Tab PO SCH (20:33)
[2023-07-24] MEDS: Sertraline 50 MG Tab PO SCH (20:33)
[2023-07-25] MEDS: Carbidopa/Levodopa 25-100 MG Tab PO SCH ×4 (05:01→18:31)
[2023-07-25] MEDS: Pantoprazole 40 MG Tab.CR PO SCH (05:01)
[2023-07-25 06:44] LABS: BASOPHILS PERCENT AUTO 0.6 % (0.3-3.8); EOSINOPHILS ABSOLUTE AUTO 0.1 x10-3/uL (0.0-0.6); EOSINOPHILS PERCENT AUTO 2.8 % (0.1-6.8); HEMATOCRIT 35.8 % (38.3-50.1); HEMOGLOBIN 12.8 g/dL (12.9-17.7); LYMPHOCYTES ABSOLUTE AUTO 1.4 x10-3/uL (0.5-4.5); LYMPHOCYTES PERCENT AUTO 27.5 % (15.8-45.3); MEAN CORPUSCULAR HEMOGLOBIN 32.4 pg (27.0-33.3); MEAN CORPUSCULAR HGB CONC 35.6 g/dL (28.7-35.3); MEAN CORPUSCULAR VOLUME 90.9 fL (80.8-98.7); MEAN PLATELET VOLUME 7.5 fL (6.7-11.0); MONOCYTES ABSOLUTE AUTO 0.6 x10-3/uL (0.0-1.2); MONOCYTES PERCENT AUTO 11.8 % (5.5-15.2); NEUTROPHILS PERCENT AUTO 57.3 % (40.3-71.8); PLATELET COUNT,PLT 241 x10(3)uL (117-477); RED BLOOD CELL COUNT 3.94 x10(6)uL (3.90-5.90); RED CELL DISTRIBUTION WIDTH 13.2 % (12.4-15.0); WHITE BLOOD CELL COUNT,WBC 5.2 x10-3/uL (3.2-10.1)
[2023-07-25 06:53] LABS: BLOOD UREA NITROGEN,BUN 13 mg/dL (7-18); BUN/CREATININE RATIO 16.3 (9-20); CALCIUM 8.8 mg/dL (8.6-10.2); CARBON DIOXIDE,CO2 25 mmol/L (21-32); CHLORIDE,CL 102 mmol/L (100-110); CREATININE 0.8 mg/dL (0.70-1.30); EST CRCL DRUG DOSING (CG) 68.88 mL/min; ESTIMATED GFR 88 mL/min (>60); GLUCOSE RANDOM 91 mg/dL (80-116); POTASSIUM,K 3.8 mmol/L (3.5-5.3); SODIUM,NA 133 mmol/L (135-145)
[2023-07-25] MEDS: Fish Oil/Omega-3 Fatty Acids 1 Gm Cap PO SCH (08:46)
[2023-07-25] MEDS: Glucosamine 500 MG Cap PO SCH (08:47)
[2023-07-25] MEDS: Aspirin 81 MG Tab.EC PO SCH (08:47)
[2023-07-25] MEDS ORDERED: Non-Formulary Medication 1 Each (Omeprazole [Omeprazole] 20 MG Capsule.Dr) PO SCH (09:00)
[2023-07-25] MEDS: Multivitamins with Iron/Calcium/Folic Acid/Minerals Tab PO SCH (13:28)
[2023-07-25] MEDS: Simvastatin 20 MG Tab PO SCH (20:06)
[2023-07-25] MEDS: Sertraline 50 MG Tab PO SCH (20:06)
[2023-07-26] MEDS: Pantoprazole 40 MG Tab.CR PO SCH (05:43)
[2023-07-26] MEDS: Carbidopa/Levodopa 25-100 MG Tab PO SCH ×4 (05:45→19:33)
[2023-07-26] MEDS: Fish Oil/Omega-3 Fatty Acids 1 Gm Cap PO SCH (10:14)
[2023-07-26] MEDS: Aspirin 81 MG Tab.EC PO SCH (10:15)
[2023-07-26] MEDS: Glucosamine 500 MG Cap PO SCH (10:15)
[2023-07-26] MEDS: Multivitamins with Iron/Calcium/Folic Acid/Minerals Tab PO SCH (12:12)
[2023-07-26] MEDS: Sertraline 50 MG Tab PO SCH (21:13)
[2023-07-26] MEDS: Simvastatin 20 MG Tab PO SCH (21:13)
[2023-07-27] MEDS: Carbidopa/Levodopa 25-100 MG Tab PO SCH (06:02)
[2023-07-27] MEDS: Pantoprazole 40 MG Tab.CR PO SCH (06:03)
[2023-07-27 07:09] LABS: ALANINE AMINOTRANSFERASE,ALT 11 U/L (12-36); ALBUMIN 3.3 g/dL (3.2-4.6); ALKALINE PHOSPHATASE 60 IU/L (56-112); ASPARTATE AMNIOTRANSFERASE,AST 19 IU/L (5-25); BLOOD UREA NITROGEN,BUN 15 mg/dL (7-18); BUN/CREATININE RATIO 16.7 (9-20); CALCIUM 9.3 mg/dL (8.6-10.2); CARBON DIOXIDE,CO2 28 mmol/L (21-32); CHLORIDE,CL 100 mmol/L (100-110); CREATININE 0.9 mg/dL (0.70-1.30); EST CRCL DRUG DOSING (CG) 61.22 mL/min; ESTIMATED GFR 85 mL/min (>60); GLUCOSE RANDOM 108 mg/dL (80-116); POTASSIUM,K 3.8 mmol/L (3.5-5.3); PROTEIN TOTAL,TP 6.7 g/dL (6.0-8.0); SODIUM,NA 133 mmol/L (135-145)
[2023-07-27] MEDS: Glucosamine 500 MG Cap PO SCH (09:12)
[2023-07-27] MEDS: Fish Oil/Omega-3 Fatty Acids 1 Gm Cap PO SCH (09:12)
[2023-07-27] MEDS: Aspirin 81 MG Tab.EC PO SCH (09:13)
== END 2023-07-27 10:15 | disposition home health service (06) | DRG 641 ==
LOC: FB.ED 21:11 → FB.MS 23:56 → OBSVTOIN 07-24 09:45 → FB.MS 07-27 15:26
PROVIDERS: ADMIT Emergency Medicine; ATTEND Family Medicine
DX: E86.0 Dehydration (principal); F33.1 Major depressive disorder, recurrent, moderate; E78.00 Pure hypercholesterolemia, unspecified; E87.1 Hypo-osmolality and hyponatremia; Z66 Do not resuscitate; K21.9 Gastro-esophageal reflux disease without esophagitis; R41.82 Altered mental status, unspecified; G31.84 Mild cognitive impairment of uncertain or unknown etiology; F41.9 Anxiety disorder, unspecified; G20.B1 Parkinson's disease with dyskinesia, without mention of fluctuations; E78.2 Mixed hyperlipidemia; Z51.5 Encounter for palliative care; Z79.82 Long term (current) use of aspirin; Z79.899 Other long term (current) drug therapy; Z90.49 Acquired absence of other specified parts of digestive tract; Z98.890 Other specified postprocedural states; Z11.52 Encounter for screening for COVID-19
CPT/HCPCS: 0241U; 36415; 70450; 70551; 71045; 80048; 80053; 80307; 81001; 83605; 83735; 84484; 85025; 86140; 93005; 93010; 96360; 97161; 99285; 96361; A9270-GY; G0378; J7030; J7040